=== PATIENT | male | born 1940 | race Caucasian/White ===

== ENCOUNTER 2016-07-23 12:31 | Emergency (ER) | payer MEDICARE ==
[2016-07-23 12:48] VITALS: BP 111/68
[2016-07-23] MEDS ORDERED: Sodium Chloride 0.9% 1,000 ML IV SCH (13:45)
--- NOTE | 2016-07-23 14:57 | EDM.PDOC ---
[id number] 4d DEHYDRATION, DIARRHEA Time Seen by Provider: 07/23/16 13:00 Source of Information: Reports: Patient, Provider History Limitations: Reports: No limitations - History of Present Illness INITIAL COMMENTS - FREE TEXT/NARRATIVE: 76-year-old male who has had persistent diarrhea for the past 2 weeks was over in the infusion center and became bradycardic and hypotensive, pallor, and they was concerned he may have electrolyte abnormalities and was dehydrated so some labs were drawn and he was sent to the emergency room. By the time he arrived to the emergency room he was feeling better, his blood pressure was 111/65 his pulse was normal. We received the labs drawn over the infusion center and they were actually normal and improved over his previous levels. He said he had a few episodes of a small amount of diarrhea this morning but overall today it's been very little. He's had no fevers or chills, shortness of breath or chest pain. Onset: sudden Severity: mild - Related Data Allergies Allergy/AdvReac Type Severity Reaction Status Date / Time No Known Allergies Allergy Verified 02/04/16 12:25 Home Meds: Home Meds Levothyroxine 225 mcg PO DAILY 01/22/13 [History] glipiZIDE [Glipizide] 5 mg PO BID 01/22/13 [History] Prochlorperazine [Compazine] 10 mg PO TID PRN 08/25/13 [History] metFORMIN [Glucophage] 850 mg PO TID 08/25/13 [History] oxyCODONE ER [OxyCONTIN] 20 mg PO Q12HR 08/25/13 [History] Furosemide 40 mg PO DAILY 12/18/14 [History] Lidocaine 2% [Xylocaine 2% Jelly] 1 applic TOP ASDIRECTED PRN 12/18/14 [History] Potassium Chloride [Klor-Con M20] 20 meq PO BIDMEALS 12/18/14 [History] oxyCODONE HCl [Roxicodone] 5 - 10 mg PO Q4H PRN 12/18/14 [History] Dexamethasone 8 mg PO ASDIRECTED 02/04/16 [History] Gabapentin [Neurontin] 300 mg PO TID 02/04/16 [History] Metoprolol Succinate [Toprol XL] 250 mg PO DAILY 03/20/16 [History] Allopurinol [Zyloprim] 100 mg PO DAILY 03/24/16 [History] Past Medical History HEENT History: Reports: Cataract, Hard of hearing, Impaired vision Other HEENT History: blind left eye Cardiovascular History: Reports: Arrhythmia, Hypertension, Other (see below) Other Cardiovascular History: A flutter Respiratory History: Reports: Other (see below) Other Respiratory History: lesions in lungs, on PO chemotherapy Gastrointestinal History: Reports: Other (see below) Other Gastrointestinal History: colon cancer Genitourinary History: Reports: Prostate disorder, Renal disease Other Genitourinary History: Indwelling casillas for approx 2 year. stage 3 CKD Musculoskeletal History: Reports: Arthritis, Other (see below) Other Musculoskeletal History: generalized weakness Neurological History: Reports: Vertigo Endocrine/Metabolic History: Reports: Diabetes, type II, Hypothyroidism Other Endocrine/Metabolic History: hypothyroidism Hematologic History: Reports: Blood transfusion(s) Immunologic History: Reports: Immunosuppression Oncologic (Cancer) History: Reports: Bone, Colon, Metastatic, Prostate, Other ( see below) Other Oncologic History: radiation for prostate ca, currently on PO meds for lung lesion Other Dermatologic History: rash on left shoulder-has had for approx 2 days - Infectious Disease History Infectious Disease History: Reports: Chicken pox, Mumps - Past Surgical History HEENT Surgical History: Reports: Oral surgery Other HEENT Surgeries/Procedures: All top teeth removed GI Surgical History: Reports: Cholecystectomy, Colonoscopy, Other (see below) Other GI Surgeries/Procedures: bowel resection Oncologic Surgical History: Reports: Other (see below) Other Oncologic Surgeries/Procedures: colon resection Social & Family History - Family History Family Medical History: Noncontributory - Tobacco Use Smoking Status *Q: Never Smoker Second Hand Smoke Exposure: No - Caffeine Use Caffeine Use: Reports: Coffee - Alcohol Use Days Per Week of Alcohol Use: 0 - Recreational Drug Use Recreational Drug Use: No ED ROS GENERAL - Review of Systems Review Of Systems: See Below Constitutional: Reports: malaise, weakness. Denies: fever, chills Respiratory: Denies: Shortness of Breath Cardiovascular: Denies: Chest pain GI/Abdominal: Reports: Diarrhea Skin: Reports: pallor Neurological: Denies: Headache ED EXAM, GENERAL - Physical Exam Exam: See Below Exam Limited By: No limitations General Appearance: alert, no apparent distress Respiratory/Chest: no respiratory distress, lungs clear Cardiovascular: regular rate, rhythm GI/Abdominal: non tender Course - Vital Signs Last Recorded V/S: Last Vital Signs Temp 97.7 F 07/23/16 12:48 Pulse 81 07/23/16 12:48 Resp 16 07/23/16 12:48 BP 111/68 07/23/16 12:48 Pulse Ox 92 L 07/23/16 12:48 - Orders/Labs/Meds Meds: Medications Discontinued Medications Generic Name Dose Route Start Last Admin Trade Name Saqib PRN Reason Stop Dose Admin Heparin Sodium (Porcine) Confirm 07/23/16 15:04 Heparin Lock Flush 100 Units/Ml Syringe Administered 07/23/16 15:05 Dose 500 units .ROUTE .STK-MED ONE Heparin Sodium (Porcine) 500 units 07/23/16 15:26 07/23/16 15:27 Heparin Lock Flush 100 Units/Ml Syringe FLUSH 07/23/16 15:27 500 units ASDIRECTED ONE Administration Sodium Chloride 1,000 mls @ 1,000 mls/hr 07/23/16 13:45 07/23/16 13:59 Normal Saline IV 1,000 mls/hr ASDIRECTED LUZ MARINA Administration - Re-Assessments/Exams Free Text/Narrative Re-Assessment/Exam: 07/24/16 07:11 Patient was hydrated with 2 L of normal saline. He was in the emergency room for almost 2 hours, we were going to collect a diarrheal sample for studies if available but he had no bowel movement. He was able to stand and ambulate with just a small amount of lightheaded sensation but was able to be discharged Departure - Departure Time of Disposition: 15:50 Disposition: Home, Self-Care 01 Condition: fair Clinical Impression: Dehydration, Vasovagal symptom Diarrhea Qualifiers: Diarrhea type: functional diarrhea Qualified Code(s): K59.1 - Functional diarrhea Instructions: Diarrhea, Adult, Dehydration, Adult, [id number] Referrals: Alonso Dejesus MD [Primary Care Provider] - Forms: ED Department Discharge Care Plan Goals: Continue your current medications and increase activity as tolerated. Return anytime if worsening or concerns.
== END 2016-07-23 15:49 | disposition home or self-care (01) ==
LOC: JP.ED 12:31
DX: E86.0 Dehydration (principal); K59.1 Functional diarrhea; R55 Syncope and collapse; I12.9 Hypertensive chronic kidney disease with stage 1 through stage 4 chronic kidney disease, or unspecified chronic kidney disease; N18.3 Chronic kidney disease, stage 3 (moderate); M19.90 Unspecified osteoarthritis, unspecified site; E11.9 Type 2 diabetes mellitus without complications; E03.9 Hypothyroidism, unspecified; Z79.899 Other long term (current) drug therapy; Z98.890 Other specified postprocedural states; Z90.49 Acquired absence of other specified parts of digestive tract; Z79.84 Long term (current) use of oral hypoglycemic drugs
CPT/HCPCS: 96360; 99284; J1642; J7040

== ENCOUNTER 2016-07-27 14:49 | Inpatient (IN) | payer MEDICARE ==
[2016-07-27] MEDS ORDERED: 50% Dextrose in Water 50 ML Syringe IVPUSH ONE (16:37)
--- NOTE | 2016-07-27 16:59 | EDM.PDOC ---
ED HPI GENERAL MEDICAL PROBLEM - General Chief Complaint: General Stated Complaint: SLURRING SPEECH Time Seen by Provider: 07/27/16 16:58 Source of Information: Reports: Patient History Limitations: Reports: No limitations - History of Present Illness INITIAL COMMENTS - FREE TEXT/NARRATIVE: pt arrived with slurred speech and very weak. He had gone to [employer] to buy dog food and he got so weak he had to be helped to the car. He sat there for a long time and a friend was called to come and help him. He had labs drawn here and his bs was found to be 37. he is on a very large dose of metformin. Onset: today, sudden, other ( He was at the store shopping. ) Duration: Hour(s): Associated Symptoms: Reports: weakness Denies Pain Score (Numeric/FACES): 0 - Related Data Allergies Allergy/AdvReac Type Severity Reaction Status Date / Time No Known Allergies Allergy Verified 07/27/16 15:13 Home Meds: Home Meds Levothyroxine 225 mcg PO DAILY 01/22/13 [History] glipiZIDE [Glipizide] 5 mg PO BID 01/22/13 [History] Prochlorperazine [Compazine] 10 mg PO TID PRN 08/25/13 [History] metFORMIN [Glucophage] 850 mg PO TID 08/25/13 [History] oxyCODONE ER [OxyCONTIN] 20 mg PO Q12HR 08/25/13 [History] Furosemide 40 mg PO DAILY 12/18/14 [History] Lidocaine 2% [Xylocaine 2% Jelly] 1 applic TOP ASDIRECTED PRN 12/18/14 [History] Potassium Chloride [Klor-Con M20] 20 meq PO BIDMEALS 12/18/14 [History] oxyCODONE HCl [Roxicodone] 5 - 10 mg PO Q4H PRN 12/18/14 [History] Dexamethasone 8 mg PO ASDIRECTED 02/04/16 [History] Gabapentin [Neurontin] 300 mg PO TID 02/04/16 [History] Metoprolol Succinate [Toprol XL] 250 mg PO DAILY 03/20/16 [History] Allopurinol [Zyloprim] 100 mg PO DAILY 03/24/16 [History] Past Medical History HEENT History: Reports: Cataract, Hard of hearing, Impaired vision Other HEENT History: blind left eye Cardiovascular History: Reports: Arrhythmia, Hypertension, Other (see below) Other Cardiovascular History: A flutter Respiratory History: Reports: Other (see below) Other Respiratory History: lesions in lungs, on PO chemotherapy Gastrointestinal History: Reports: Other (see below) Other Gastrointestinal History: colon cancer Genitourinary History: Reports: Prostate disorder, Renal disease Other Genitourinary History: Indwelling casillas for approx 2 year. stage 3 CKD Musculoskeletal History: Reports: Arthritis, Other (see below) Other Musculoskeletal History: generalized weakness Neurological History: Reports: Vertigo Endocrine/Metabolic History: Reports: Diabetes, type II, Hypothyroidism Other Endocrine/Metabolic History: hypothyroidism Hematologic History: Reports: Blood transfusion(s) Immunologic History: Reports: Immunosuppression Oncologic (Cancer) History: Reports: Bone, Colon, Metastatic, Prostate, Other ( see below) Other Oncologic History: radiation for prostate ca, currently on PO meds for lung lesion Other Dermatologic History: rash on left shoulder-has had for approx 2 days - Infectious Disease History Infectious Disease History: Reports: Chicken pox, Mumps - Past Surgical History HEENT Surgical History: Reports: Oral surgery Other HEENT Surgeries/Procedures: All top teeth removed GI Surgical History: Reports: Cholecystectomy, Colonoscopy, Other (see below) Other GI Surgeries/Procedures: bowel resection Oncologic Surgical History: Reports: Other (see below) Other Oncologic Surgeries/Procedures: colon resection Social & Family History - Family History Family Medical History: Noncontributory - Tobacco Use Smoking Status *Q: Never Smoker Second Hand Smoke Exposure: No - Caffeine Use Caffeine Use: Reports: Coffee - Alcohol Use Days Per Week of Alcohol Use: 0 - Recreational Drug Use Recreational Drug Use: No ED ROS GENERAL - Review of Systems Review Of Systems: See Below Constitutional: Reports: no symptoms HEENT: Reports: No symptoms Respiratory: Reports: No Symptoms Cardiovascular: Reports: No symptoms Endocrine: Reports: no symptoms GI/Abdominal: Reports: No symptoms : Reports: no symptoms Musculoskeletal: Reports: no symptoms Skin: Reports: no symptoms ED EXAM, GENERAL - Physical Exam Exam: See Below Free Text/Narrative:: pt arrived with weakness and slurred speech. he was found to have a bs of 37. He had an amp of d50 and he woke up and seemed back to normal. He has a history of prostate ca and is on chemo 3 weeks on and 1 wk off. Exam Limited By: No limitations General Appearance: alert, no apparent distress Ears: normal TMs Nose: normal inspection Throat/Mouth: Normal inspection Head: atraumatic Neck: normal inspection Respiratory/Chest: no respiratory distress Cardiovascular: regular rate, rhythm GI/Abdominal: soft, non tender (Male) Exam: Deferred Rectal (Males) Exam: Deferred Back Exam: normal inspection Extremities: normal inspection Neurological: alert, oriented Psychiatric: normal affect Course - Vital Signs Last Recorded V/S: Last Vital Signs Temp 34.8 C L 07/27/16 16:41 Pulse 62 07/27/16 16:41 Resp 16 07/27/16 16:41 BP 135/90 07/27/16 16:41 Pulse Ox 95 07/27/16 16:41 - Orders/Labs/Meds Orders: Active Orders 24 hr Category Date Time Status CULTURE URINE [RM] Stat Lab 07/27/16 17:42 Received GLUCOSE POC LAB TO COLLECT [POC] Stat Lab 07/27/16 17:51 Ordered Dextrose 5%-0.45% NaCl [Dextrose 5%-1/2 NS] 1,000 ml Med 07/27/16 17:00 Active IV ASDIRECTED Medication Orders Dextrose/Sodium Chloride (Dextrose 5%-1/2 Ns) 1,000 mls @ 200 mls/hr IV ASDIRECTED LUZ MARINA Last Admin: 07/27/16 17:25 Dose: 200 mls/hr Labs: Laboratory Tests 07/27/16 07/27/16 07/27/16 Range/Units 16:09 16:09 16:52 WBC 5.2 (4.5-11.0) K/uL RBC 3.71 L (4.30-5.90) M/uL Hgb 11.0 L (12.0-15.0) g/dL Hct 33.4 L (40.0-54.0) % MCV 90 (80-98) fL MCH 30 (27-31) pg MCHC 33 (32-36) % Plt Count 213 (150-400) K/uL Neut % (Auto) 85 H (36-66) % Lymph % (Auto) 3 L (24-44) % [place] % (Auto) 11 H (2-6) % Eos % (Auto) 0 L (2-4) % Baso % (Auto) 0 (0-1) % Sodium 132 L (140-148) mmol/L Potassium 3.5 L (3.6-5.2) mmol/L Chloride 99 L (100-108) mmol/L Carbon Dioxide 22 (21-32) mmol/L Anion Gap 14.5 H (5.0-14.0) mmol/L BUN 10 D (7-18) mg/dL Creatinine 1.3 (0.8-1.3) mg/dL Est Cr Clr Drug Dosing 52.08 mL/min Estimated GFR (MDRD) 54 L (>60) Glucose 37 L* (74-106) mg/dL Calcium 8.2 L (8.5-10.1) mg/dL Total Bilirubin 0.5 D (0.2-1.0) mg/dL AST 46 H (15-37) U/L ALT 64 (12-78) U/L Alkaline Phosphatase 81 D (46-116) U/L Total Protein 6.5 (6.4-8.2) g/dL Albumin 2.7 L (3.4-5.0) g/dL Globulin 3.8 H (2.3-3.5) g/dL Albumin/Globulin Ratio 0.7 L (1.2-2.2) Urine Color Yellow Urine Appearance Slightly cloudy Urine pH 6.0 (4.5-8.0) Ur Specific [place] 1.005 L (1.008-1.030) Urine Protein Negative (NEGATIVE) mg/dL Urine Glucose (UA) Normal (NEGATIVE) mg/dL Urine Ketones Negative (NEGATIVE) mg/dL Urine Occult Blood Moderate (NEGATIVE) Urine Nitrite Positive H (NEGAITVE) Urine Bilirubin Negative (NEGATIVE) Urine Urobilinogen Normal (NORMAL) mg/dL Ur Leukocyte Esterase Large (NEGATIVE) Urine RBC 5-10 H (0-5) Urine WBC 30-40 H (0-5) Ur Epithelial Cells Few Amorphous Sediment Few Urine Bacteria Many Urine Mucus Few Meds: Medications Generic Name Dose Route Start Last Admin Trade Name Freq PRN Reason Stop Dose Admin Dextrose/Sodium Chloride 1,000 mls @ 200 mls/hr 07/27/16 17:00 07/27/16 17:25 Dextrose 5%-1/2 Ns IV 200 mls/hr ASDIRECTED LUZ MARINA Administration Discontinued Medications Generic Name Dose Route Start Last Admin Trade Name Freq PRN Reason Stop Dose Admin Dextrose/Water 50 ml 07/27/16 16:37 07/27/16 16:41 Dextrose 50% In Water IVPUSH 07/27/16 16:38 50 ml ONETIME ONE Administration Departure - Departure Time of Disposition: 17:52 Disposition: Admitted As Inpatient 67 Condition: good Clinical Impression: Hypoglycemia, UTI (urinary tract infection), Prostate CA Forms: ED Department Discharge Care Plan Goals: admit for observation through the nite. -- Amanda Chiang. - My Orders Last 24 Hours: My Active Orders 07/27/16 17:00 Dextrose 5%-0.45% NaCl [Dextrose 5%-1/2 NS] 1,000 ml IV ASDIRECTED 07/27/16 17:42 CULTURE URINE [RM] Stat 07/27/16 17:51 GLUCOSE POC LAB TO COLLECT [POC] Stat - Assessment/Plan Last 24 Hours: My Active Orders 07/27/16 17:00 Dextrose 5%-0.45% NaCl [Dextrose 5%-1/2 NS] 1,000 ml IV ASDIRECTED 07/27/16 17:42 CULTURE URINE [RM] Stat 07/27/16 17:51 GLUCOSE POC LAB TO COLLECT [POC] Stat
[2016-07-27] MEDS ORDERED: Dextrose 5%-0.45% NaCl 1,000 ML IV SCH (17:00)
[2016-07-27] MEDS ORDERED: cefTRIAXone 1 GM in Sodium Chloride 0.9% 50 ML IV SCH (18:45)
[2016-07-27] MEDS ORDERED: HYDROmorphone 1 MG/ML Syringe IVPUSH ONE (19:23)
[2016-07-27] MEDS ORDERED: Ondansetron 4 MG/2 ML SDV IVPUSH ONE (19:24)
[2016-07-27] MEDS ORDERED: Lidocaine 2% Jelly 10 ML Urojet MUCMEM ONE (20:41)
[2016-07-27] MEDS ORDERED: LORazepam 2 MG/ML MDV IV PRN (22:05)
[2016-07-27] MEDS ORDERED: Albuterol 0.083% 2.5 MG/3 ML Neb Soln NEB PRN (22:05)
[2016-07-27] MEDS ORDERED: Zolpidem 5 MG Tab PO PRN (22:05)
[2016-07-27] MEDS ORDERED: Dexamethasone 4 MG Tab PO SCH (22:05)
[2016-07-27] MEDS ORDERED: Acetaminophen 325 MG Tab PO PRN (22:05)
[2016-07-27] MEDS ORDERED: Prochlorperazine 10 MG Tab PO PRN (22:05)
[2016-07-27] MEDS ORDERED: oxyCODONE 5 MG Tab PO PRN (22:05)
[2016-07-27] MEDS ORDERED: Docusate Sodium 100 MG Cap PO PRN (22:05)
[2016-07-27] MEDS ORDERED: Pantoprazole 40 MG Vial ONE (22:57)
[2016-07-27] MEDS: Pantoprazole 40 MG Vial IVPUSH SCH (23:00)
[2016-07-27] MEDS: oxyCODONE ER 20 MG TAB.ER PO SCH (23:00)
[2016-07-27] MEDS: Potassium Chloride 20 MEQ Tab.ER PO SCH (23:00)
--- NOTE | 2016-07-27 23:02 | PCM.HP ---
H&P History of Present Illness - General Date of Service: 07/27/16 Admit Problem/Dx: Admission Diagnosis/Problem Admission Diagnosis/Problem Urinary tract infection Source of Information: Patient History Limitations: Reports: No limitations - History of Present Illness Initial Comments - Free Text/Narative: INITIAL COMMENTS: hypoglycemia, urinary tract infection, prostate cancer with chemotherapy. Mr. Manuelito rincon has felt well for the past 3 weeks. Feeling increasingly fatigue, shortness of breath. Carmen last night fell in the house, laid on the floor for 45 minutes because too weak to get up, finally crawled to bathroom, was able to get to standing position by pulling self up to bathtub, then sink , then standing. He reports his casillas cath is painful and has a stinging pain. Today he was at [id number] for dog food when he became so weak, difficulty walking and thinking, he required assistance to car. He called his friend Mr. Juno Copeland to come and help him. When Mr. Billings arrived in Emergency Room with slurred speech and very weak. He had labs drawn here and his blood glucose was found to be 37. He is taking Metformin and glyubride. He had an amp of d50 and he woke up and seemed back to normal. IV fluids D5W at 250ml/hr. He has a history of prostate ca and is on chemo 3 weeks on and 1 wk off diabetes type 2 In ER, found to have urinary tract infection, hypoglycemia and diabetes type 2, colon cancer with mets will admit for IV antibiotic, rehydration, consult to OT and PT Onset of Symptoms: Reports: gradual Duration of Symptoms: Reports: Week(s): (three), Getting worse Location: Reports: generalized Quality: Reports: Same as previous episode (bladder pain ) Severity: moderate Improves with: Reports: None Worsens with: Reports: None Context: Reports: other (fall at home with 45 minutes on floor.) Associated Symptoms: Reports: confusion, fever/chills, loss of appetite, malaise , shortness of breath, weakness Denies Pain Score (Numeric/FACES): 0 - Related Data Allergies/Adverse Reactions: Allergies Allergy/AdvReac Type Severity Reaction Status Date / Time No Known Allergies Allergy Verified 07/27/16 15:13 Home Medications: Home Meds Levothyroxine 225 mcg PO DAILY 10/26/13 [History] glipiZIDE [Glipizide] 5 mg PO BID 01/22/13 [History] Prochlorperazine [Compazine] 10 mg PO TID PRN 08/25/13 [History] metFORMIN [Glucophage] 850 mg PO TID 08/25/13 [History] oxyCODONE ER [OxyCONTIN] 20 mg PO Q12HR 08/25/13 [History] Furosemide 40 mg PO DAILY 12/18/14 [History] Lidocaine 2% [Xylocaine 2% Jelly] 1 applic TOP ASDIRECTED PRN 12/18/14 [History] Potassium Chloride [Klor-Con M20] 20 meq PO BIDMEALS 12/18/14 [History] oxyCODONE HCl [Roxicodone] 5 - 10 mg PO Q4H PRN 12/18/14 [History] Dexamethasone 8 mg PO ASDIRECTED 02/04/16 [History] Gabapentin [Neurontin] 300 mg PO TID 02/04/16 [History] Metoprolol Succinate [Toprol XL] 250 mg PO DAILY 03/20/16 [History] Allopurinol [Zyloprim] 100 mg PO DAILY 03/24/16 [History] Past Medical History HEENT History: Reports: Cataract, Hard of hearing, Impaired vision Other HEENT History: blind left eye Cardiovascular History: Reports: Arrhythmia, Hypertension, Other (see below) Other Cardiovascular History: A flutter Respiratory History: Reports: Other (see below) Other Respiratory History: lesions in lungs, on PO chemotherapy Gastrointestinal History: Reports: Other (see below) Other Gastrointestinal History: colon cancer Genitourinary History: Reports: Prostate disorder, Renal disease Other Genitourinary History: Indwelling casillas for approx 2 year. stage 3 CKD Musculoskeletal History: Reports: Arthritis, Other (see below) Other Musculoskeletal History: generalized weakness Neurological History: Reports: Vertigo Endocrine/Metabolic History: Reports: Diabetes, type II, Hypothyroidism Other Endocrine/Metabolic History: hypothyroidism Hematologic History: Reports: Blood transfusion(s) Immunologic History: Reports: Immunosuppression Oncologic (Cancer) History: Reports: Bone, Colon, Metastatic, Prostate, Other ( see below) Other Oncologic History: radiation for prostate ca, currently on PO meds for lung lesion Other Dermatologic History: rash on left shoulder-has had for approx 2 days - Infectious Disease History Infectious Disease History: Reports: Chicken pox, Mumps - Past Surgical History HEENT Surgical History: Reports: Oral surgery Other HEENT Surgeries/Procedures: All top teeth removed GI Surgical History: Reports: Cholecystectomy, Colonoscopy, Other (see below) Other GI Surgeries/Procedures: bowel resection Oncologic Surgical History: Reports: Other (see below) Other Oncologic Surgeries/Procedures: colon resection Social & Family History - Family History Family Medical History: Noncontributory - Tobacco Use Smoking Status *Q: Never Smoker Second Hand Smoke Exposure: No - Caffeine Use Caffeine Use: Reports: Coffee - Alcohol Use Days Per Week of Alcohol Use: 0 - Recreational Drug Use Recreational Drug Use: No - Living Situation & Occupation Living situation: Reports: single Occupation: disabled (retired construction rep, not , no children, lives alone, has a brother who visits and stays at his home, but is not helpful to home life.) H&P Review of Systems - Review of Systems: Review Of Systems: See Below General: Reports: chills, weakness, fatigue, decreased appetite, other (chemo therapy for prostate cancer) HEENT: Reports: other (left eye 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 due for change in one week.) Musculoskeletal: Reports: other (generalized pain, on chronic pain management. ) Skin: Reports: bruising (from fall yesterday.), wound (skin tear to right elbow and right anterior lower leg.) Psychiatric: Reports: no symptoms Neurological: Reports: Difficulty Walking, Weakness Hematologic/Lymphatic: Reports: easy bleeding, easy bruising Immunologic: Reports: other (chemo therapy for prostate cancer) Exam - Exam Exam: See Below - Vital Signs Vital Signs: Last Vital Signs Temp 35.7 C 07/27/16 18:58 Pulse 87 07/27/16 21:21 Resp 16 07/27/16 21:21 BP 141/99 H 07/27/16 21:21 Pulse Ox 94 L 07/27/16 21:21 Weight: 95.8 kg - Exam General: alert, oriented, cooperative, other (appears frail and chronically illness.) HEENT: Conjunctiva clear (eyelid with bright red fleshy tissue noted to rim of eyelids.), Abnormal pupils (left eye blindness), Other (left eye with blindness. ) Neck: supple, trachea midline Lungs: Normal respiratory effort Cardiovascular: regular rate, regular rhythm, normal S1, normal S2 Abdomen: normal bowel sounds, soft, other (old well healed surgical scars noted. ) (Male) Exam: Deferred, Other (casillas cath is noted.) Rectal (Males) Exam: Deferred Back Exam: normal inspection, full range of motion Extremities: normal inspection, other (skin tear noted to rt anterior ankle, skin very dry and flakes of dry skin.) Skin: warm, dry, other (multi skin tears to bilateral arms, lower legs.) Neurological: reflexes equal bilateral, normal speech, normal tone Neuro Extensive - Mental Status: alert, oriented x3, normal mood/affect, normal cognition, memory intact Psychiatric: alert, normal affect, normal mood - Patient Data Result Diagrams: 07/27/16 16:09 07/27/16 16:09 *Q Meaningful Use (ADM) - VTE *Q VTE Criteria *Q: - Stroke *Q Stroke Criteria *Q: - AMI *Q AMI Criteria *Q: - Problem List (1) Diabetes mellitus type 2 with complications SNOMED Code(s): 51524406, 43729900811117 ICD Code: E11.8 - TYPE 2 DIABETES MELLITUS WITH UNSPECIFIED COMPLICATIONS Status: Acute Priority: High Current Visit: Yes Qualifiers: Diabetes mellitus half-way insulin use: without half-way use Qualified Code(s): E11.8 - Type 2 diabetes mellitus with unspecified complications (2) Hypoglycemia SNOMED Code(s): 973131725 ICD Code: E16.2 - HYPOGLYCEMIA, UNSPECIFIED Status: Acute Priority: High Current Visit: Yes (3) Prostate CA SNOMED Code(s): 243629899 ICD Code: C61 - MALIGNANT NEOPLASM OF PROSTATE Status: Acute Priority: High Current Visit: Yes (4) UTI (urinary tract infection) SNOMED Code(s): 17463326 ICD Code: N39.0 - URINARY TRACT INFECTION, SITE NOT SPECIFIED Status: Acute Priority: High Current Visit: Yes Qualifiers: Urinary tract infection type: catheter-associated UTI Indwelling urinary catheter type: indwelling urethral catheter Encounter type: initial encounter Qualified Code(s): T83.511A - Infection and inflammatory reaction due to indwelling urethral catheter, initial encounter; N39.0 - Urinary tract infection , site not specified Problem List Initiated/Reviewed/Updated: Yes Orders Last 24hrs: Active Orders 24 hr Category Date Time Status Patient Status [ADT] Routine ADT 07/27/16 22:05 Active Cardiac Monitoring [RC] .As Directed Care 07/27/16 22:05 Active Diabetes Education [RC] Click To Edit Care 07/27/16 22:05 Active Intake and Output [RC] QSHIFT Care 07/27/16 22:05 Active Notify Provider Vital Signs [RC] ASDIRECTED Care 07/27/16 22:05 Active Oxygen Therapy [RC] PRN Care 07/27/16 22:05 Active RT Aerosol Therapy [RC] ASDIRECTED Care 07/27/16 22:05 Active Up With Assistance [RC] ASDIRECTED Care 07/27/16 22:05 Active VTE/DVT Education [RC] Per Unit Routine Care 07/27/16 22:05 Active Vital Signs [RC] Q4H Care 07/27/16 22:05 Active Consult to Spiritual Care [CONS] Routine Cons 07/27/16 22:05 Active OT Evaluation and Treatment [CONS] Routine Cons 07/27/16 22:05 Active PT Evaluation and Treatment [CONS] Routine Cons 07/27/16 22:05 Active Consistent Carbohydrate Diet [DIET] Diet 07/27/16 Breakfast Active BASIC METABOLIC PANEL,BMP [CHEM] AM Lab 07/28/16 05:11 Ordered CBC WITH AUTO DIFF [HEME] AM Lab 07/28/16 05:11 Ordered GLUCOSE POC LAB TO COLLECT [POC] QIDACANDBED Lab 07/28/16 07:30 Ordered Acetaminophen [Tylenol] Med 07/27/16 22:05 Active 650 mg PO Q4H PRN Albuterol [Proventil Neb Soln] Med 07/27/16 22:05 Active 2.5 mg NEB Q4H PRN Allopurinol [Zyloprim] Med 07/28/16 09:00 Active 100 mg PO DAILY Dexamethasone Med 07/27/16 22:05 Ordered 8 mg PO ASDIRECTED Docusate Sodium [Colace] Med 07/27/16 22:05 Active 100 mg PO BID PRN Furosemide [Lasix] Med 07/28/16 09:00 Active 40 mg PO DAILY Gabapentin [Neurontin] Med 07/28/16 09:00 Active 300 mg PO TID LORazepam [Ativan] Med 07/27/16 22:05 Active 1 mg IV Q6H PRN Levothyroxine Med 07/28/16 09:00 Active 25 mcg PO DAILY Levothyroxine [Synthroid] Med 07/28/16 09:00 Active 200 mcg PO DAILY Metoprolol Succinate [Toprol XL] Med 07/28/16 09:00 Active 250 mg PO DAILY Pantoprazole [ProTONIX IV] Med 07/27/16 22:05 Active 40 mg IVPUSH Q12H Potassium Chloride [Klor-Con M20] Med 07/27/16 22:05 Active 20 meq PO BIDMEALS Prochlorperazine [Compazine] Med 07/27/16 22:05 Active 10 mg PO TID PRN Sodium Chloride 0.9% [Normal Saline] 1,000 ml Med 07/27/16 22:05 Active IV ASDIRECTED Zolpidem [Ambien] Med 07/27/16 22:05 Active 5 mg PO BEDTIME PRN cefTRIAXone [Rocephin] 1 gm Med 07/28/16 20:00 Active Sodium Chloride 0.9% [Normal Saline] 50 ml IV Q24H oxyCODONE Med 07/27/16 22:05 Active See Dose Instructions PO Q4H PRN oxyCODONE ER [OxyCONTIN] Med 07/27/16 22:00 Active 20 mg PO Q12H Sequential Compression Device [OM.PC] Per Unit Routine Oth 07/27/16 22:05 Ordered Resuscitation Status Routine Resus Stat 07/27/16 21:11 Ordered Medication Orders Acetaminophen (Tylenol) 650 mg PO Q4H PRN PRN Reason: Pain (Mild 1-3)/fever Albuterol (Proventil Neb Soln) 2.5 mg NEB Q4H PRN PRN Reason: Shortness Of Breath/wheezing Allopurinol (Zyloprim) 100 mg PO DAILY [facility] Dexamethasone (Dexamethasone) 8 mg PO ASDIRECTED [facility] Docusate Sodium (Colace) 100 mg PO BID PRN PRN Reason: Constipation Furosemide (Lasix) 40 mg PO DAILY [facility] Gabapentin (Neurontin) 300 mg PO TID [facility] Dextrose/Sodium Chloride (Dextrose 5%-1/2 Ns) 1,000 mls @ 200 mls/hr IV ASDIRECTED [facility] Last Admin: 07/27/16 17:25 Dose: 200 mls/hr Sodium Chloride (Normal Saline) 1,000 mls @ 125 mls/hr IV ASDIRECTED [facility] Ceftriaxone Sodium 1 gm/ (Sodium Chloride) 50 mls @ 100 mls/hr IV Q24H [facility] Levothyroxine Sodium (Synthroid) 200 mcg PO DAILY [facility] Levothyroxine Sodium (Levothyroxine) 25 mcg PO DAILY [facility] Lorazepam (Ativan) 1 mg IV Q6H PRN PRN Reason: Nausea/Vomiting Metoprolol Succinate (Toprol Xl) 250 mg PO DAILY [facility] Oxycodone HCl (Oxycontin) 20 mg PO Q12H [facility] Last Admin: 07/27/16 23:00 Dose: 20 mg Oxycodone HCl (Oxycodone) 0 mg PO Q4H PRN PRN Reason: Pain Pantoprazole Sodium (Protonix Iv) 40 mg IVPUSH Q12H [facility] Last Admin: 07/27/16 23:00 Dose: 40 mg Potassium Chloride (Klor-Con M20) 20 meq PO BIDMEALS [facility] Last Admin: 07/27/16 23:00 Dose: 20 meq Prochlorperazine Maleate (Compazine) 10 mg PO TID PRN PRN Reason: Nausea/Vomiting Zolpidem Tartrate (Ambien) 5 mg PO BEDTIME PRN PRN Reason: Sleep Assessment/Plan Comment:: ASSESSMENT / PLAN INITIAL COMMENTS: hypoglycemia, urinary tract infection, prostate cancer with chemotherapy. Mr. Billings reports has felt well for the past 3 weeks. Feeling increasingly fatigue, shortness of breath. Reports last night fell in the house, laid on the floor for 45 minutes because too weak to get up, finally crawled to bathroom, was able to get to standing position by pulling self up to bathtub, then sink , then standing. He reports his casillas cath is painful and has a stinging pain. 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 He called his friend Mr. Juno Copeland to come and help him. When Mr. Billings arrived in Emergency Room with slurred speech and very weak. He had labs drawn here and his blood glucose was found to be 37. He is taking Metformin and glyubride. He had an amp of d50 and he woke up and seemed back to normal. IV fluids D5W at 250ml/hr. He has a history of prostate cancer and is on chemo 3 weeks on and 1 wk off diabetes type 2 In ER, found to have urinary tract infection, hypoglycemia and diabetes type 2, colon cancer with mets Urinary Tract infection -Rocephin 1 gram in ER, next dose at 0900 -casillas cath changed -IV fluids NS at 125ml/hr Diabetes Type 2, complication hypoglycemia -monitor blood glucose 4 times a day -hold metformin and glyburide -POC blood glucose -Advise to notify nurses of any chest pain or other symptoms Maintenance issues -Orders home meds: hold metformin and glyubride -Nutrition: consistent carb diet -Casillas catheter ;' changed in ER -DVT: scd CODE STATUS: DNI Admission status: Admit to ICU Admission justification. This patient will be admitted for inpatient services and is medically appropriate meeting medical necessity for inpatient admission as outlined in my documentation. I reasonably expect the patient will require inpatient services that span. Time over 2 midnights. I reasonably expect this patient to be discharged or transferred within 96 hours after admission to the critical [facility]. Disposition; home or assisted living home Primary care provider: Dr. Dejesus Hospitalist; Dr. Joseph
[2016-07-27] MEDS: Sodium Chloride 0.9% 1,000 ML IV SCH (23:03)
[2016-07-28] MEDS: Sodium Chloride 0.9% 1,000 ML IV SCH (07:25)
[2016-07-28] MEDS: Potassium Chloride 20 MEQ Tab.ER PO SCH ×2 (08:29→17:55)
[2016-07-28] MEDS: Allopurinol 100 MG Tab PO SCH (08:29)
[2016-07-28] MEDS: Furosemide 40 MG Tab PO SCH (08:29)
[2016-07-28] MEDS: Gabapentin 300 MG Cap PO SCH ×3 (08:29→20:47)
[2016-07-28] MEDS: Levothyroxine 25 MCG Tab PO SCH (08:30)
[2016-07-28] MEDS: Levothyroxine 100 MCG Tab PO SCH (08:30)
[2016-07-28] MEDS: Metoprolol Succinate 50 MG Tab.ER PO SCH (08:32)
[2016-07-28] MEDS ORDERED: Levothyroxine 25 MCG Tab PO SCH (09:00)
[2016-07-28] MEDS ORDERED: Levothyroxine 100 MCG Tab PO SCH (09:00)
[2016-07-28] MEDS: oxyCODONE ER 20 MG TAB.ER PO SCH ×2 (09:31→21:40)
[2016-07-28] MEDS: Pantoprazole 40 MG Vial IVPUSH SCH ×2 (09:31→21:32)
--- NOTE | 2016-07-28 14:15 | PCM.PN ---
- General Info Date of Service: 07/28/16 Functional Status: Reports: pain controlled, tolerating diet, ambulating, urinating - Review of Systems General: Reports: Fever, Weakness. Denies: Chills Pulmonary: Reports: no symptoms Cardiovascular: Reports: No Symptoms Gastrointestinal: Reports: No symptoms Genitourinary: Reports: dysuria, frequency, burning. Denies: incontinence, hematuria, retention Systems Review Comment:: This patient is a 76-year-old gentleman who is admitted through the emergency department last night with weakness, confusion, and dehydration secondary to a urinary tract infection. After hydration and initial dose of antibiotics he is feeling somewhat improved, appetite seems to be better and he is no longer confused. - Patient Data Vitals - most recent: Last Vital Signs Temp 100 F 07/28/16 11:00 Pulse 79 07/28/16 11:00 Resp 18 07/28/16 11:00 BP 112/77 07/28/16 11:00 Pulse Ox 91 L 07/28/16 11:00 Weight - most recent: 211 lb 3.245 oz I&O - last 24 hours: Intake & Output 07/27/16 07/28/16 07/28/16 22:59 06:59 14:59 Intake Total 1178 360 Output Total 395 300 Balance -395 878 360 Lab Results last 24 hrs: Laboratory Results - last 24 hr 07/28/16 07/28/16 07/28/16 Range/Units 01:09 05:35 05:35 WBC 4.5 (4.5-11.0) K/uL RBC 3.27 L (4.30-5.90) M/uL Hgb 9.8 L (12.0-15.0) g/dL Hct 29.5 L (40.0-54.0) % MCV 90 (80-98) fL MCH 30 (27-31) pg MCHC 33 (32-36) % Plt Count 211 (150-400) K/uL Neut % (Auto) 73 H (36-66) % Lymph % (Auto) 10 L (24-44) % [place] % (Auto) 16 H (2-6) % Eos % (Auto) 1 L (2-4) % Baso % (Auto) 0 (0-1) % Sodium 132 L (140-148) mmol/L Potassium 4.3 (3.6-5.2) mmol/L Chloride 102 (100-108) mmol/L Carbon Dioxide 21 (21-32) mmol/L Anion Gap 13.3 (5.0-14.0) mmol/L BUN 10 (7-18) mg/dL Creatinine 1.3 (0.8-1.3) mg/dL Est Cr Clr Drug Dosing 52.29 mL/min Estimated GFR (MDRD) 54 L (>60) Glucose 98 (74-106) mg/dL Lactic Acid 1.8 (0.4-2.0) mmol/L Calcium 7.4 L (8.5-10.1) mg/dL Med Orders - Current: Current Medications Acetaminophen (Tylenol) 650 mg PO Q4H PRN PRN Reason: Pain (Mild 1-3)/fever Albuterol (Proventil Neb Soln) 2.5 mg NEB Q4H PRN PRN Reason: Shortness Of Breath/wheezing Allopurinol (Zyloprim) 100 mg PO DAILY [facility] Last Admin: 07/28/16 08:29 Dose: 100 mg Docusate Sodium (Colace) 100 mg PO BID PRN PRN Reason: Constipation Furosemide (Lasix) 40 mg PO DAILY [facility] Last Admin: 07/28/16 08:29 Dose: 40 mg Gabapentin (Neurontin) 300 mg PO TID [facility] Last Admin: 07/28/16 08:29 Dose: 300 mg Ceftriaxone Sodium 1 gm/ (Sodium Chloride) 50 mls @ 100 mls/hr IV Q24H [facility] Levothyroxine Sodium (Levothyroxine) 25 mcg PO ACBREAKFAST [facility] Last Admin: 07/28/16 08:30 Dose: 25 mcg Levothyroxine Sodium (Synthroid) 200 mcg PO ACBREAKFAST [facility] Last Admin: 07/28/16 08:30 Dose: 200 mcg Lorazepam (Ativan) 1 mg IV Q6H PRN PRN Reason: Nausea/Vomiting Metoprolol Succinate (Toprol Xl) 250 mg PO DAILY [facility] Last Admin: 07/28/16 08:32 Dose: 250 mg Oxycodone HCl (Oxycontin) 20 mg PO Q12H [facility] Last Admin: 07/28/16 09:31 Dose: 20 mg Oxycodone HCl (Oxycodone) 0 mg PO Q4H PRN PRN Reason: Pain Pantoprazole Sodium (Protonix Iv) 40 mg IVPUSH Q12H [facility] Last Admin: 07/28/16 09:31 Dose: 40 mg Potassium Chloride (Klor-Con M20) 20 meq PO BIDMEALS [facility] Last Admin: 07/28/16 08:29 Dose: 20 meq Prochlorperazine Maleate (Compazine) 10 mg PO TID PRN PRN Reason: Nausea/Vomiting Zolpidem Tartrate (Ambien) 5 mg PO BEDTIME PRN PRN Reason: Sleep Discontinued Medications Dextrose/Water (Dextrose 50% In Water) 50 ml IVPUSH ONETIME ONE Stop: 07/27/16 16:38 Last Admin: 07/27/16 16:41 Dose: 50 ml Hydromorphone HCl (Dilaudid) 1 mg IVPUSH ONETIME ONE Stop: 07/27/16 19:24 Last Admin: 07/27/16 19:35 Dose: 1 mg Dextrose/Sodium Chloride (Dextrose 5%-1/2 Ns) 1,000 mls @ 200 mls/hr IV ASDIRECTED [facility] Last Admin: 07/27/16 17:25 Dose: 200 mls/hr Ceftriaxone Sodium 1 gm/ (Sodium Chloride) 50 mls @ 100 mls/hr IV Q24H [facility] Last Admin: 07/27/16 19:40 Dose: 100 mls/hr Sodium Chloride (Normal Saline) 1,000 mls @ 125 mls/hr IV ASDIRECTED [facility] Last Admin: 07/28/16 07:25 Dose: 125 mls/hr Lidocaine HCl (Xylocaine 2% Jelly) 10 ml MUCMEM ONETIME ONE Stop: 07/27/16 20:42 Last Admin: 07/27/16 21:50 Dose: 10 ml Ondansetron HCl (Zofran) 4 mg IVPUSH ONETIME ONE Stop: 07/27/16 19:25 Last Admin: 07/27/16 19:35 Dose: 4 mg Pantoprazole Sodium (Protonix Iv) Confirm Administered Dose 40 mg .ROUTE .STK -MED ONE Stop: 07/27/16 22:58 Last Admin: 07/27/16 22:59 Dose: Not Given - Exam Quality Assessment: DVT prophylaxis General: alert, oriented, cooperative Lungs: Clear to auscultation, Normal respiratory effort, Decreased breath sounds Cardiovascular: Regular Rate, Regular Rhythm, No Murmurs Abdomen: bowel sounds present, soft, no tenderness, no distension Extremities: no edema Skin: warm, dry, intact - Problem List Review Problem List Initiated/Reviewed/Updated: Yes - My Orders Last 24 Hours: My Active Orders 07/28/16 14:11 Convert IV to Saline Lock [OM.PC] Routine - Plan Plan:: ASSESSMENT / PLAN Urinary Tract infection-history of chronic indwelling catheter, secondary to prostate cancer -Rocephin 1 gram in ER, next dose at 0900 -casillas cath changed -Saline lock IV DELIRIUM-secondary to urinary tract infection, now resolved Diabetes Type 2, complication hypoglycemia -monitor blood glucose 4 times a day -hold metformin and glyburide -POC blood glucose -Sliding scale [employer] Maintenance issues -Orders home meds: hold metformin and glyubride -Nutrition: consistent carb diet -Casillas catheter ;' changed in ER -DVT: scd CODE STATUS: DNR Admission status: Admit to ICU Admission justification. This patient will be admitted for inpatient services and is medically appropriate meeting medical necessity for inpatient admission as outlined in my documentation. I reasonably expect the patient will require inpatient services that span. Time over 2 midnights. I reasonably expect this patient to be discharged or transferred within 96 hours after admission to the critical access hospital. Disposition; home or assisted living home Primary care provider: Dr. Dejesus Hospitalist; Dominique
[2016-07-28] MEDS ORDERED: Glucose Gel 15 GM in 37.5 GM Tube PO PRN (14:16)
[2016-07-28] MEDS: cefTRIAXone 1 GM in Sodium Chloride 0.9% 50 ML IV SCH (20:55)
[2016-07-28] MEDS: Insulin Aspart 100 Units/ML 3 ML Pen SUBCUT SCH (21:50)
[2016-07-29] MEDS: Levothyroxine 25 MCG Tab PO SCH (07:26)
[2016-07-29] MEDS: Levothyroxine 100 MCG Tab PO SCH (07:26)
[2016-07-29] MEDS: Potassium Chloride 20 MEQ Tab.ER PO SCH ×2 (08:38→17:11)
[2016-07-29] MEDS: Gabapentin 300 MG Cap PO SCH ×3 (08:39→21:05)
[2016-07-29] MEDS: Metoprolol Succinate 50 MG Tab.ER PO SCH (08:39)
[2016-07-29] MEDS: Furosemide 40 MG Tab PO SCH (08:40)
[2016-07-29] MEDS: Allopurinol 100 MG Tab PO SCH (08:40)
[2016-07-29] MEDS: oxyCODONE ER 20 MG TAB.ER PO SCH ×2 (09:56→22:04)
[2016-07-29] MEDS: Pantoprazole 40 MG Tab.CR PO SCH ×2 (11:14→21:06)
[2016-07-29] MEDS: Insulin Aspart 100 Units/ML 3 ML Pen SUBCUT SCH ×3 (13:03→21:00)
[2016-07-29] MEDS: Lactulose Soln 10 GM/15 ML 15 ML UD Cup PO SCH ×2 (18:36→21:03)
--- NOTE | 2016-07-29 19:04 | PCM.PN ---
- General Info Date of Service: 07/29/16 Functional Status: Reports: tolerating diet, urinating - Review of Systems General: Reports: Fever, Weakness. Denies: Chills Pulmonary: Reports: no symptoms Cardiovascular: Reports: No Symptoms Gastrointestinal: Reports: No symptoms Systems Review Comment:: This patient has shown further improvement over the past 24 hours, he is had only low-grade temperature elevations and has been hemodynamically stable. Appetite seems to be improving, he's had no significant nausea or vomiting. - Patient Data Vitals - most recent: Last Vital Signs Temp 100.0 F 07/29/16 15:42 Pulse 71 07/29/16 10:45 Resp 16 07/29/16 15:42 BP 128/80 07/29/16 15:42 Pulse Ox 92 L 07/29/16 15:42 Weight - most recent: 211 lb 3.245 oz I&O - last 24 hours: Intake & Output 07/29/16 07/29/16 07/29/16 06:59 14:59 22:59 Intake Total 600 600 480 Output Total 650 2275 Balance -50 600 -1795 Med Orders - Current: Current Medications Acetaminophen (Tylenol) 650 mg PO Q4H PRN PRN Reason: Pain (Mild 1-3)/fever Albuterol (Proventil Neb Soln) 2.5 mg NEB Q4H PRN PRN Reason: Shortness Of Breath/wheezing Allopurinol (Zyloprim) 100 mg PO DAILY [facility] Last Admin: 07/29/16 08:40 Dose: 100 mg Dextrose (Glutose 15) 15 gm PO ONETIME PRN PRN Reason: Hypoglycemia Docusate Sodium (Colace) 100 mg PO BID [facility] Furosemide (Lasix) 40 mg PO DAILY [facility] Last Admin: 07/29/16 08:40 Dose: 40 mg Gabapentin (Neurontin) 300 mg PO TID [facility] Last Admin: 07/29/16 13:04 Dose: 300 mg Ceftriaxone Sodium 1 gm/ (Sodium Chloride) 50 mls @ 100 mls/hr IV Q24H [facility] Last Admin: 07/28/16 20:55 Dose: 100 mls/hr Insulin Aspart (Novolog) 0 unit SUBCUT ASDIRECTED [facility] PRN Reason: Protocol Last Admin: 07/29/16 17:12 Dose: 2 unit Lactulose (Chronulac) 20 gm PO BID [facility] Last Admin: 07/29/16 18:36 Dose: 20 gm Levothyroxine Sodium (Levothyroxine) 25 mcg PO ACBREAKFAST [facility] Last Admin: 07/29/16 07:26 Dose: 25 mcg Levothyroxine Sodium (Synthroid) 200 mcg PO ACBREAKFAST [facility] Last Admin: 07/29/16 07:26 Dose: 200 mcg Lorazepam (Ativan) 1 mg IV Q6H PRN PRN Reason: Nausea/Vomiting Metoprolol Succinate (Toprol Xl) 250 mg PO DAILY [facility] Last Admin: 07/29/16 08:39 Dose: 250 mg Oxycodone HCl (Oxycontin) 20 mg PO Q12H [facility] Last Admin: 07/29/16 09:56 Dose: 20 mg Oxycodone HCl (Oxycodone) 0 mg PO Q4H PRN PRN Reason: Pain Pantoprazole Sodium (Protonix) 40 mg PO BID [facility] Last Admin: 07/29/16 11:14 Dose: 40 mg Potassium Chloride (Klor-Con M20) 20 meq PO BIDMEALS [facility] Last Admin: 07/29/16 17:11 Dose: 20 meq Prochlorperazine Maleate (Compazine) 10 mg PO TID PRN PRN Reason: Nausea/Vomiting Zolpidem Tartrate (Ambien) 5 mg PO BEDTIME PRN PRN Reason: Sleep Discontinued Medications Dextrose/Water (Dextrose 50% In Water) 50 ml IVPUSH ONETIME ONE Stop: 07/27/16 16:38 Last Admin: 07/27/16 16:41 Dose: 50 ml Docusate Sodium (Colace) 100 mg PO BID PRN PRN Reason: Constipation Hydromorphone HCl (Dilaudid) 1 mg IVPUSH ONETIME ONE Stop: 07/27/16 19:24 Last Admin: 07/27/16 19:35 Dose: 1 mg Dextrose/Sodium Chloride (Dextrose 5%-1/2 Ns) 1,000 mls @ 200 mls/hr IV ASDIRECTED [facility] Last Admin: 07/27/16 17:25 Dose: 200 mls/hr Ceftriaxone Sodium 1 gm/ (Sodium Chloride) 50 mls @ 100 mls/hr IV Q24H [facility] Last Admin: 07/27/16 19:40 Dose: 100 mls/hr Sodium Chloride (Normal Saline) 1,000 mls @ 125 mls/hr IV ASDIRECTED [facility] Last Admin: 07/28/16 07:25 Dose: 125 mls/hr Lidocaine HCl (Xylocaine 2% Jelly) 10 ml MUCMEM ONETIME ONE Stop: 07/27/16 20:42 Last Admin: 07/27/16 21:50 Dose: 10 ml Ondansetron HCl (Zofran) 4 mg IVPUSH ONETIME ONE Stop: 07/27/16 19:25 Last Admin: 07/27/16 19:35 Dose: 4 mg Pantoprazole Sodium (Protonix Iv) 40 mg IVPUSH Q12H [facility] Last Admin: 07/28/16 21:32 Dose: 40 mg Pantoprazole Sodium (Protonix Iv) Confirm Administered Dose 40 mg .ROUTE .STK -MED ONE Stop: 07/27/16 22:58 Last Admin: 07/27/16 22:59 Dose: Not Given - Exam Quality Assessment: urine catheter, DVT prophylaxis General: alert, oriented, cooperative Lungs: Clear to auscultation, Normal respiratory effort Cardiovascular: Regular Rate, Regular Rhythm, No Murmurs Abdomen: bowel sounds present, soft, no tenderness, no distension Extremities: no edema Skin: warm, dry, intact - Problem List Review Problem List Initiated/Reviewed/Updated: Yes - My Orders Last 24 Hours: My Active Orders 07/29/16 18:00 Lactulose [Chronulac] 20 gm PO BID 07/29/16 21:00 Docusate Sodium [Colace] 100 mg PO BID glipiZIDE [Glipizide] 5 mg PO BID metFORMIN [Glucophage] 850 mg PO TID - Plan Plan:: ASSESSMENT / PLAN Urinary Tract infection-history of chronic indwelling catheter, secondary to prostate cancer -Rocephin 1 gram IV every 24 hours -[place] cath changed -Saline lock IV DELIRIUM-secondary to urinary tract infection, now resolved Diabetes Type 2, complication hypoglycemia-blood sugars have been somewhat higher now that appetite has improved -monitor blood glucose 4 times a day -resume therapy with metformin and glipizide -POC blood glucose -Sliding scale NovoLog Maintenance issues -Nutrition: consistent carb diet -[place] catheter ;' changed in ER -DVT: scd CODE STATUS: DNR Admission status: Admit to ICU Admission justification. This patient will be admitted for inpatient services and is medically appropriate meeting medical necessity for inpatient admission as outlined in my documentation. I reasonably expect the patient will require inpatient services that span. Time over 2 midnights. I reasonably expect this patient to be discharged or transferred within 96 hours after admission to the critical [facility]. Disposition;because of weakness will require [facility] for restorative physical therapy and occupational therapy Primary care provider: Dr. Dejesus Hospitalist; Dominique
[2016-07-29] MEDS: cefTRIAXone 1 GM in Sodium Chloride 0.9% 50 ML IV SCH (20:57)
[2016-07-29] MEDS: Docusate Sodium 100 MG Cap PO SCH (21:06)
[2016-07-30] MEDS: Levothyroxine 25 MCG Tab PO SCH (09:00)
[2016-07-30] MEDS: glipiZIDE 5 MG Tab PO SCH ×2 (09:00→17:34)
[2016-07-30] MEDS: Levothyroxine 100 MCG Tab PO SCH (09:01)
[2016-07-30] MEDS: Potassium Chloride 20 MEQ Tab.ER PO SCH ×2 (09:01→17:35)
[2016-07-30] MEDS: Pantoprazole 40 MG Tab.CR PO SCH ×2 (09:04→21:48)
[2016-07-30] MEDS: Allopurinol 100 MG Tab PO SCH (09:04)
[2016-07-30] MEDS: Docusate Sodium 100 MG Cap PO SCH ×2 (09:05→21:46)
[2016-07-30] MEDS: Furosemide 40 MG Tab PO SCH (09:05)
[2016-07-30] MEDS: Gabapentin 300 MG Cap PO SCH ×3 (09:05→21:46)
[2016-07-30] MEDS: Lactulose Soln 10 GM/15 ML 15 ML UD Cup PO SCH ×2 (09:06→21:49)
[2016-07-30] MEDS: Metoprolol Succinate 50 MG Tab.ER PO SCH (09:06)
[2016-07-30] MEDS: oxyCODONE ER 20 MG TAB.ER PO SCH ×2 (09:41→22:03)
[2016-07-30] MEDS ORDERED: Ciprofloxacin 500 MG Tab PO SCH (10:00)
[2016-07-30] MEDS: Insulin Aspart 100 Units/ML 3 ML Pen SUBCUT SCH ×2 (11:28→21:45)
--- NOTE | 2016-07-30 12:40 | PCM.PN ---
- General Info Date of Service: 07/30/16 Functional Status: Reports: pain controlled - Review of Systems General: Reports: Fever, Weakness. Denies: Chills Pulmonary: Reports: no symptoms Cardiovascular: Reports: No Symptoms Gastrointestinal: Reports: No symptoms Systems Review Comment:: This patient is feeling well this morning, he did have recurrent temperature elevation during the night to 101.5. Vital signs have been stable, energy level mildly improved, and appetite seems to be better. - Patient Data Vitals - most recent: Last Vital Signs Temp 100.1 F 07/30/16 10:40 Pulse 67 07/30/16 09:06 Resp 16 07/30/16 10:40 BP 139/87 07/30/16 10:40 Pulse Ox 91 L 07/30/16 10:40 Weight - most recent: 211 lb 3.245 oz I&O - last 24 hours: Intake & Output 07/29/16 07/30/16 07/30/16 22:59 06:59 14:59 Intake Total 480 1080 Output Total 2375 325 Balance -1895 -325 1080 Med Orders - Current: Current Medications Acetaminophen (Tylenol) 650 mg PO Q4H PRN PRN Reason: Pain (Mild 1-3)/fever Albuterol (Proventil Neb Soln) 2.5 mg NEB Q4H PRN PRN Reason: Shortness Of Breath/wheezing Allopurinol (Zyloprim) 100 mg PO DAILY [facility] Last Admin: 07/30/16 09:04 Dose: 100 mg Ciprofloxacin (Ciprofloxacin Hcl) 500 mg PO BID [facility] Last Admin: 07/30/16 09:44 Dose: 500 mg Dextrose (Glutose 15) 15 gm PO ONETIME PRN PRN Reason: Hypoglycemia Docusate Sodium (Colace) 100 mg PO BID [facility] Last Admin: 07/30/16 09:05 Dose: 100 mg Furosemide (Lasix) 40 mg PO DAILY [facility] Last Admin: 07/30/16 09:05 Dose: 40 mg Gabapentin (Neurontin) 300 mg PO TID [facility] Last Admin: 07/30/16 09:05 Dose: 300 mg Glipizide (Glucotrol) 5 mg PO BIDAC [facility] Last Admin: 07/30/16 09:00 Dose: 5 mg Heparin Sodium (Porcine) (Heparin Lock Flush 100 Units/Ml Syringe) 500 units FLUSH ASDIRECTED PRN PRN Reason: IV Use Last Admin: 07/29/16 21:50 Dose: 500 units Insulin Aspart (Novolog) 0 unit SUBCUT ASDIRECTED [facility] PRN Reason: Protocol Last Admin: 07/30/16 11:28 Dose: 2 unit Lactulose (Chronulac) 20 gm PO BID [facility] Last Admin: 07/30/16 09:06 Dose: 20 gm Levothyroxine Sodium (Levothyroxine) 25 mcg PO ACBREAKFAST [facility] Last Admin: 07/30/16 09:00 Dose: 25 mcg Levothyroxine Sodium (Synthroid) 200 mcg PO ACBREAKFAST [facility] Last Admin: 07/30/16 09:01 Dose: 200 mcg Lorazepam (Ativan) 1 mg IV Q6H PRN PRN Reason: Nausea/Vomiting Metformin HCl (Glucophage) 850 mg PO TID@0800,1200,1700 [facility] Last Admin: 07/30/16 11:28 Dose: 850 mg Metoprolol Succinate (Toprol Xl) 250 mg PO DAILY [facility] Last Admin: 07/30/16 09:06 Dose: 250 mg Oxycodone HCl (Oxycontin) 20 mg PO Q12H [facility] Last Admin: 07/30/16 09:41 Dose: 20 mg Oxycodone HCl (Oxycodone) 0 mg PO Q4H PRN PRN Reason: Pain Pantoprazole Sodium (Protonix) 40 mg PO BID [facility] Last Admin: 07/30/16 09:04 Dose: 40 mg Potassium Chloride (Klor-Con M20) 20 meq PO BIDMEALS [facility] Last Admin: 07/30/16 09:01 Dose: 20 meq Prochlorperazine Maleate (Compazine) 10 mg PO TID PRN PRN Reason: Nausea/Vomiting Zolpidem Tartrate (Ambien) 5 mg PO BEDTIME PRN PRN Reason: Sleep Discontinued Medications Dextrose/Water (Dextrose 50% In Water) 50 ml IVPUSH ONETIME ONE Stop: 07/27/16 16:38 Last Admin: 07/27/16 16:41 Dose: 50 ml Docusate Sodium (Colace) 100 mg PO BID PRN PRN Reason: Constipation Hydromorphone HCl (Dilaudid) 1 mg IVPUSH ONETIME ONE Stop: 07/27/16 19:24 Last Admin: 07/27/16 19:35 Dose: 1 mg Dextrose/Sodium Chloride (Dextrose 5%-1/2 Ns) 1,000 mls @ 200 mls/hr IV ASDIRECTED [facility] Last Admin: 07/27/16 17:25 Dose: 200 mls/hr Ceftriaxone Sodium 1 gm/ (Sodium Chloride) 50 mls @ 100 mls/hr IV Q24H [facility] Last Admin: 07/27/16 19:40 Dose: 100 mls/hr Sodium Chloride (Normal Saline) 1,000 mls @ 125 mls/hr IV ASDIRECTED [facility] Last Admin: 07/28/16 07:25 Dose: 125 mls/hr Ceftriaxone Sodium 1 gm/ (Sodium Chloride) 50 mls @ 100 mls/hr IV Q24H [facility] Last Admin: 07/29/16 20:57 Dose: 100 mls/hr Lidocaine HCl (Xylocaine 2% Jelly) 10 ml MUCMEM ONETIME ONE Stop: 07/27/16 20:42 Last Admin: 07/27/16 21:50 Dose: 10 ml Ondansetron HCl (Zofran) 4 mg IVPUSH ONETIME ONE Stop: 07/27/16 19:25 Last Admin: 07/27/16 19:35 Dose: 4 mg Pantoprazole Sodium (Protonix Iv) 40 mg IVPUSH Q12H [facility] Last Admin: 07/28/16 21:32 Dose: 40 mg Pantoprazole Sodium (Protonix Iv) Confirm Administered Dose 40 mg .ROUTE .STK -MED ONE Stop: 07/27/16 22:58 Last Admin: 07/27/16 22:59 Dose: Not Given - Exam Quality Assessment: DVT prophylaxis General: alert, oriented, cooperative, no acute distress Lungs: Clear to auscultation, Normal respiratory effort Cardiovascular: Regular Rate, Regular Rhythm, No Murmurs Abdomen: bowel sounds present, soft, no tenderness, no distension Extremities: no edema Skin: warm, dry, intact - Problem List Review Problem List Initiated/Reviewed/Updated: Yes - My Orders Last 24 Hours: My Active Orders 07/29/16 18:00 Lactulose [Chronulac] 20 gm PO BID 07/29/16 20:35 Heparin Sodium [Heparin Lock Flush 100 Units/ML Syringe] 500 units FLUSH ASDIRECTED PRN 07/29/16 21:00 Docusate Sodium [Colace] 100 mg PO BID 07/30/16 07:30 glipiZIDE [Glucotrol] 5 mg PO BIDAC 07/30/16 08:00 metFORMIN [Glucophage] 850 mg PO TID@0800,1200,1700 07/30/16 10:00 Ciprofloxacin [Ciprofloxacin HCl] 500 mg PO BID - Plan Plan:: ASSESSMENT / PLAN Urinary Tract infection-history of chronic indwelling catheter, secondary to prostate cancer-culture has not grown out Proteus -Ciprofloxacin 500 mg by mouth twice a day -[place] cath changed -Saline lock IV DELIRIUM-secondary to urinary tract infection, now resolved Diabetes Type 2, complication hypoglycemia-blood sugars have been somewhat higher now that appetite has improved -monitor blood glucose 4 times a day -Continue therapy with metformin and glipizide -POC blood glucose -Sliding scale NovoLog Maintenance issues -Nutrition: consistent carb diet -[place] catheter ;' changed in ER -DVT: scd CODE STATUS: DNR Admission status: Admit to ICU Admission justification. This patient will be admitted for inpatient services and is medically appropriate meeting medical necessity for inpatient admission as outlined in my documentation. I reasonably expect the patient will require inpatient services that span. Time over 2 midnights. I reasonably expect this patient to be discharged or transferred within 96 hours after admission to the critical access hospital. Disposition;because of weakness will require skilled nursing placement tomorrow for restorative physical therapy and occupational therapy Primary care provider: Dr. Dejesus Hospitalist; Dominique
[2016-07-30] MEDS ORDERED: Vancomycin 1 GM SDV IV SCH (18:00)
[2016-07-30] MEDS: Sodium Chloride 0.9% 1,000 ML IV SCH (18:04)
[2016-07-30] MEDS: Piperacillin/Tazobactam/Dext 3.375 GM in Premix Bag 1 BAG IV SCH ×2 (18:07→23:45)
[2016-07-30] MEDS: Levofloxacin/Dextrose 5%-Water 500 MG in Premix Bag 1 BAG IV SCH (19:50)
[2016-07-30] MEDS: Vancomycin 1.4 GM in Sodium Chloride 0.9% 250 ML IV SCH (21:20)
[2016-07-31] MEDS ORDERED: Sodium Chloride 0.9% 10 ML Syringe FLUSH PRN (05:49)
[2016-07-31] MEDS: oxyCODONE ER 20 MG TAB.ER PO SCH ×2 (05:53→17:52)
[2016-07-31] MEDS: Sodium Chloride 0.9% 1,000 ML IV SCH (06:01)
[2016-07-31] MEDS: Piperacillin/Tazobactam/Dext 3.375 GM in Premix Bag 1 BAG IV SCH ×3 (06:52→18:04)
[2016-07-31] MEDS: glipiZIDE 5 MG Tab PO SCH ×2 (07:57→17:49)
[2016-07-31] MEDS: Levothyroxine 25 MCG Tab PO SCH (07:58)
[2016-07-31] MEDS: Levothyroxine 100 MCG Tab PO SCH (07:58)
[2016-07-31] MEDS: Potassium Chloride 20 MEQ Tab.ER PO SCH ×2 (07:59→17:53)
[2016-07-31] MEDS: Vancomycin 1.4 GM in Sodium Chloride 0.9% 250 ML IV SCH ×2 (08:03→20:15)
[2016-07-31] MEDS: Docusate Sodium 100 MG Cap PO SCH ×2 (08:57→20:24)
[2016-07-31] MEDS: Lactulose Soln 10 GM/15 ML 15 ML UD Cup PO SCH ×2 (08:57→20:24)
[2016-07-31] MEDS: Gabapentin 300 MG Cap PO SCH ×3 (08:58→20:25)
[2016-07-31] MEDS: Pantoprazole 40 MG Tab.CR PO SCH ×2 (08:58→20:25)
[2016-07-31] MEDS: Furosemide 40 MG Tab PO SCH (08:58)
[2016-07-31] MEDS: Allopurinol 100 MG Tab PO SCH (08:59)
[2016-07-31] MEDS: Metoprolol Succinate 50 MG Tab.ER PO SCH (09:00)
--- NOTE | 2016-07-31 09:09 | CR ---
Chest 2V HISTORY: Metastatic prostate cancer recurrent fever. COMPARISON: CT chest 06/02/2016. FINDINGS: Patchy infiltrate right lung base and left lung base. Right-sided Port-A-Cath. Cardiac siz e stable. No acute congestive change. Innumerable small pulmonary nodules. There are some sclerotic areas of density within the thoracic spine and proximal right humerus compatible with metastatic dis ease Impression: Patchy infiltrate right and left lung base with multiple pulmonary nodules.
--- NOTE | 2016-07-31 15:30 | PCM.PN ---
- General Info Date of Service: 07/31/16 Functional Status: Reports: pain controlled, ambulating, urinating - Review of Systems General: Reports: Fever, Weakness. Denies: Chills Pulmonary: Reports: shortness of breath, cough. Denies: pleuritic chest pain, sputum, hemoptysis, wheezing Cardiovascular: Reports: Dyspnea on Exertion. Denies: Chest Pain, Palpitations , Orthopnea, PND, Edema Gastrointestinal: Reports: No symptoms Systems Review Comment:: This patient has improved since yesterday, after significant temperature elevation yesterday afternoon further evaluation was performed and he has evidence of bilateral infiltrates on chest x-ray, not seen at the time of admission. He's been placed on broad-spectrum antibiotics and does feel improved today and has not yet had significant temperature elevation since yesterday afternoon. - Patient Data Vitals - most recent: Last Vital Signs Temp 100.3 F 07/31/16 14:50 Pulse 79 07/31/16 14:50 Resp 16 07/31/16 14:50 BP 118/75 07/31/16 14:50 Pulse Ox 95 07/31/16 14:50 Weight - most recent: 211 lb 3.245 oz I&O - last 24 hours: Intake & Output 07/31/16 07/31/16 07/31/16 06:59 14:59 22:59 Intake Total 2008 780 Output Total 400 Balance 1608 780 Lab Results last 24 hrs: Laboratory Results - last 24 hr 07/30/16 07/30/16 07/30/16 Range/Units 17:10 17:10 18:13 WBC 5.2 (4.5-11.0) K/uL RBC 3.47 L (4.30-5.90) M/uL Hgb 10.3 L (12.0-15.0) g/dL Hct 32.0 L (40.0-54.0) % MCV 92 (80-98) fL MCH 30 (27-31) pg MCHC 32 (32-36) % Plt Count 258 (150-400) K/uL Neut % (Auto) 72 H (36-66) % Lymph % (Auto) 9 L (24-44) % Collin % (Auto) 17 H (2-6) % Eos % (Auto) 2 (2-4) % Baso % (Auto) 0 (0-1) % Sodium 129 L (140-148) mmol/L Potassium 4.4 (3.6-5.2) mmol/L Chloride 98 L (100-108) mmol/L Carbon Dioxide 22 (21-32) mmol/L Anion Gap 13.4 (5.0-14.0) mmol/L BUN 14 (7-18) mg/dL Creatinine 1.4 H (0.8-1.3) mg/dL Est Cr Clr Drug Dosing 48.36 mL/min Estimated GFR (MDRD) 49 L (>60) Glucose 96 (74-106) mg/dL Calcium 7.0 L (8.5-10.1) mg/dL Total Bilirubin 0.6 (0.2-1.0) mg/dL AST 98 H D (15-37) U/L ALT 97 H (12-78) U/L Alkaline Phosphatase 133 H (46-116) U/L Total Protein 6.1 L (6.4-8.2) g/dL Albumin 2.3 L (3.4-5.0) g/dL Globulin 3.8 H (2.3-3.5) g/dL Albumin/Globulin Ratio 0.6 L (1.2-2.2) Urine Color Yellow Urine Appearance Clear Urine pH 5.0 (4.5-8.0) Ur Specific [place] 1.015 (1.008-1.030) Urine Protein 30 H (NEGATIVE) mg/dL Urine Glucose (UA) Normal (NEGATIVE) mg/dL Urine Ketones Negative (NEGATIVE) mg/dL Urine Occult Blood Moderate (NEGATIVE) Urine Nitrite Negative (NEGAITVE) Urine Bilirubin Negative (NEGATIVE) Urine Urobilinogen Normal (NORMAL) mg/dL Ur Leukocyte Esterase Moderate (NEGATIVE) Urine RBC 0-5 (0-5) Urine WBC 0-5 (0-5) Ur Epithelial Cells Not seen Amorphous Sediment Not seen Urine Bacteria Not seen Urine Mucus Not seen 07/31/16 07/31/16 Range/Units 08:50 08:50 WBC 4.9 (4.5-11.0) K/uL RBC 3.46 L (4.30-5.90) M/uL Hgb 10.1 L (12.0-15.0) g/dL Hct 31.7 L (40.0-54.0) % MCV 92 (80-98) fL MCH 29 (27-31) pg MCHC 32 (32-36) % Plt Count 221 (150-400) K/uL Neut % (Auto) 77 H (36-66) % Lymph % (Auto) 9 L (24-44) % Collin % (Auto) 12 H (2-6) % Eos % (Auto) 2 (2-4) % Baso % (Auto) 0 (0-1) % Sodium 129 L (140-148) mmol/L Potassium 3.9 (3.6-5.2) mmol/L Chloride 99 L (100-108) mmol/L Carbon Dioxide 23 (21-32) mmol/L Anion Gap 10.9 (5.0-14.0) mmol/L BUN 13 (7-18) mg/dL Creatinine 1.3 (0.8-1.3) mg/dL Est Cr Clr Drug Dosing 52.08 mL/min Estimated GFR (MDRD) 54 L (>60) Glucose 136 H (74-106) mg/dL Calcium 7.0 L (8.5-10.1) mg/dL Total Bilirubin 0.8 (0.2-1.0) mg/dL AST 40 H (15-37) U/L ALT 72 (12-78) U/L Alkaline Phosphatase 114 (46-116) U/L Total Protein 5.9 L (6.4-8.2) g/dL Albumin 2.2 L (3.4-5.0) g/dL Globulin 3.7 H (2.3-3.5) g/dL Albumin/Globulin Ratio 0.6 L (1.2-2.2) Urine Color Urine Appearance Urine pH (4.5-8.0) Ur Specific [place] (1.008-1.030) Urine Protein (NEGATIVE) mg/dL Urine Glucose (UA) (NEGATIVE) mg/dL Urine Ketones (NEGATIVE) mg/dL Urine Occult Blood (NEGATIVE) Urine Nitrite (NEGAITVE) Urine Bilirubin (NEGATIVE) Urine Urobilinogen (NORMAL) mg/dL Ur Leukocyte Esterase (NEGATIVE) Urine RBC (0-5) Urine WBC (0-5) Ur Epithelial Cells Amorphous Sediment Urine Bacteria Urine Mucus Med Orders - Current: Current Medications Acetaminophen (Tylenol) 650 mg PO Q4H PRN PRN Reason: Pain (Mild 1-3)/fever Last Admin: 07/30/16 14:56 Dose: 650 mg Albuterol (Proventil Neb Soln) 2.5 mg NEB Q4H PRN PRN Reason: Shortness Of Breath/wheezing Allopurinol (Zyloprim) 100 mg PO DAILY [facility] Last Admin: 07/31/16 08:59 Dose: 100 mg Dextrose (Glutose 15) 15 gm PO ONETIME PRN PRN Reason: Hypoglycemia Docusate Sodium (Colace) 100 mg PO BID [facility] Last Admin: 07/31/16 08:57 Dose: Not Given Furosemide (Lasix) 40 mg PO DAILY [facility] Last Admin: 07/31/16 08:58 Dose: 40 mg Gabapentin (Neurontin) 300 mg PO TID [facility] Last Admin: 07/31/16 13:45 Dose: 300 mg Glipizide (Glucotrol) 5 mg PO BIDAC [facility] Last Admin: 07/31/16 07:57 Dose: 5 mg Heparin Sodium (Porcine) (Heparin Lock Flush 100 Units/Ml Syringe) 500 units FLUSH ASDIRECTED PRN PRN Reason: IV Use Last Admin: 07/29/16 21:50 Dose: 500 units Levofloxacin/Dextrose 500 mg/ (Premix) 100 mls @ 100 mls/hr IV Q24H [facility] Last Admin: 07/30/16 19:50 Dose: 100 mls/hr Piperacillin/Tazobactam/ (Dextrose 3.375 gm/ Premix) 50 mls @ 100 mls/hr IV Q6H [facility] Last Admin: 07/31/16 11:38 Dose: 100 mls/hr Vancomycin HCl 1.4 gm/ Sodium (Chloride) 250 mls @ 165 mls/hr IV Q12H [facility] Last Admin: 07/31/16 08:03 Dose: 165 mls/hr Insulin Aspart (Novolog) 0 unit SUBCUT ASDIRECTED [facility] PRN Reason: Protocol Last Admin: 07/30/16 21:45 Dose: 1 unit Lactulose (Chronulac) 20 gm PO BID [facility] Last Admin: 07/31/16 08:57 Dose: Not Given Levothyroxine Sodium (Levothyroxine) 25 mcg PO ACBREAKFAST [facility] Last Admin: 07/31/16 07:58 Dose: 25 mcg Levothyroxine Sodium (Synthroid) 200 mcg PO ACBREAKFAST [facility] Last Admin: 07/31/16 07:58 Dose: 200 mcg Lorazepam (Ativan) 1 mg IV Q6H PRN PRN Reason: Nausea/Vomiting Metformin HCl (Glucophage) 850 mg PO TID@0800,1200,1700 [facility] Last Admin: 07/31/16 11:38 Dose: 850 mg Metoprolol Succinate (Toprol Xl) 250 mg PO DAILY [facility] Last Admin: 07/31/16 09:00 Dose: 250 mg Oxycodone HCl (Oxycodone) 0 mg PO Q4H PRN PRN Reason: Pain Oxycodone HCl (Oxycontin) 20 mg PO Q12H [facility] Last Admin: 07/31/16 05:53 Dose: 20 mg Pantoprazole Sodium (Protonix) 40 mg PO BID [facility] Last Admin: 07/31/16 08:58 Dose: 40 mg Potassium Chloride (Klor-Con M20) 20 meq PO BIDMEALS [facility] Last Admin: 07/31/16 07:59 Dose: 20 meq Prochlorperazine Maleate (Compazine) 10 mg PO TID PRN PRN Reason: Nausea/Vomiting Last Admin: 07/30/16 12:50 Dose: 10 mg Sodium Chloride (Saline Flush) 10 ml FLUSH ASDIRECTED PRN PRN Reason: Keep Vein Open Zolpidem Tartrate (Ambien) 5 mg PO BEDTIME PRN PRN Reason: Sleep Discontinued Medications Ciprofloxacin (Ciprofloxacin Hcl) 500 mg PO BID [facility] Last Admin: 07/30/16 09:44 Dose: 500 mg Dextrose/Water (Dextrose 50% In Water) 50 ml IVPUSH ONETIME ONE Stop: 07/27/16 16:38 Last Admin: 07/27/16 16:41 Dose: 50 ml Docusate Sodium (Colace) 100 mg PO BID PRN PRN Reason: Constipation Hydromorphone HCl (Dilaudid) 1 mg IVPUSH ONETIME ONE Stop: 07/27/16 19:24 Last Admin: 07/27/16 19:35 Dose: 1 mg Dextrose/Sodium Chloride (Dextrose 5%-1/2 Ns) 1,000 mls @ 200 mls/hr IV ASDIRECTED [facility] Last Admin: 07/27/16 17:25 Dose: 200 mls/hr Ceftriaxone Sodium 1 gm/ (Sodium Chloride) 50 mls @ 100 mls/hr IV Q24H [facility] Last Admin: 07/27/16 19:40 Dose: 100 mls/hr Sodium Chloride (Normal Saline) 1,000 mls @ 125 mls/hr IV ASDIRECTED [facility] Last Admin: 07/28/16 07:25 Dose: 125 mls/hr Ceftriaxone Sodium 1 gm/ (Sodium Chloride) 50 mls @ 100 mls/hr IV Q24H [facility] Last Admin: 07/29/16 20:57 Dose: 100 mls/hr Sodium Chloride (Normal Saline) 1,000 mls @ 125 mls/hr IV ASDIRECTED [facility] Last Admin: 07/31/16 06:01 Dose: 125 mls/hr Lidocaine HCl (Xylocaine 2% Jelly) 10 ml MUCMEM ONETIME ONE Stop: 07/27/16 20:42 Last Admin: 07/27/16 21:50 Dose: 10 ml Ondansetron HCl (Zofran) 4 mg IVPUSH ONETIME ONE Stop: 07/27/16 19:25 Last Admin: 07/27/16 19:35 Dose: 4 mg Oxycodone HCl (Oxycontin) 20 mg PO Q12H [facility] Last Admin: 07/30/16 22:03 Dose: 20 mg Pantoprazole Sodium (Protonix Iv) 40 mg IVPUSH Q12H [facility] Last Admin: 07/28/16 21:32 Dose: 40 mg Pantoprazole Sodium (Protonix Iv) Confirm Administered Dose 40 mg .ROUTE .STK -MED ONE Stop: 07/27/16 22:58 Last Admin: 07/27/16 22:59 Dose: Not Given Vancomycin HCl (Vancomycin) 1 gm IV .PHARMACY TO DOSE LUZ MARINA - Exam Quality Assessment: supplemental oxygen, DVT prophylaxis General: alert, oriented, cooperative Lungs: Rales, Rhonchi. No: Decreased breath sounds, Crackles, Wheezing Cardiovascular: Regular Rate, Regular Rhythm, No Murmurs Abdomen: bowel sounds present, soft, no tenderness, no distension Extremities: no edema Skin: warm, dry, intact - Problem List Review Problem List Initiated/Reviewed/Updated: Yes - My Orders Last 24 Hours: My Active Orders 07/30/16 16:28 Blood Culture x2 Reflex Set [OM.PC] Urgent 07/30/16 17:10 CULTURE BLOOD [BC] Stat CULTURE BLOOD [BC] Stat 07/30/16 18:00 Piperacillin/Tazobactam/Dext [Zosyn in Dextrose Iso-Osmotic 3.375 GM] 3.375 gm Premix Bag 1 bag IV Q6H 07/30/16 18:30 Levofloxacin/Dextrose 5%-Water [Levaquin in D5W 500 MG/100 ML] 500 mg Premix Bag 1 bag IV Q24H 07/30/16 20:00 Vancomycin 1.4 gm Sodium Chloride 0.9% [Normal Saline] 250 ml IV Q12H 07/31/16 05:49 Peripheral IV Care [RC] . DIRECTED Sodium Chloride 0.9% [Saline Flush] 10 ml FLUSH ASDIRECTED PRN Peripheral IV Insertion Adult [OM.PC] Routine 07/31/16 15:23 Convert IV to Saline Lock [OM.PC] Routine 08/01/16 05:00 BASIC METABOLIC PANEL,BMP [CHEM] Timed - Plan Plan:: ASSESSMENT / PLAN BILATERAL PNEUMONIA-current fever yesterday, chest x-ray shows bilateral infiltrates -Cultures pending -Continue broad-spectrum antibiotic therapy with vancomycin, Zosyn, and levofloxacin, pending culture results Urinary Tract infection-history of chronic indwelling catheter, secondary to prostate cancer-culture has not grown out Proteus -Current IV antibiotic therapy should provide adequate coverage -casillas cath changed -Saline lock IV DELIRIUM-secondary to urinary tract infection, now resolved Diabetes Type 2, complication hypoglycemia-blood sugars have been somewhat higher now that appetite has improved -monitor blood glucose 4 times a day -Continue therapy with metformin and glipizide -POC blood glucose -Sliding scale NovoLog Maintenance issues -Nutrition: consistent carb diet -[place] catheter ;' changed in ER -DVT: scd CODE STATUS: DNR Admission status: Admit to ICU Admission justification. This patient will be admitted for inpatient services and is medically appropriate meeting medical necessity for inpatient admission as outlined in my documentation. I reasonably expect the patient will require inpatient services that span. Time over 2 midnights. I reasonably expect this patient to be discharged or transferred within 96 hours after admission to the critical access hospital. Disposition;because of weakness will require snf placement tomorrow for restorative physical therapy and occupational therapy Primary care provider: Dr. Dejesus Hospitalist; Dominique
[2016-07-31] MEDS ORDERED: 50% Dextrose in Water 50 ML Syringe IVPUSH ONE (17:53)
[2016-07-31] MEDS ORDERED: 50% Dextrose in Water 50 ML Syringe ONE (17:59)
[2016-07-31] MEDS: Levofloxacin/Dextrose 5%-Water 500 MG in Premix Bag 1 BAG IV SCH (18:43)
[2016-08-01] MEDS: Piperacillin/Tazobactam/Dext 3.375 GM in Premix Bag 1 BAG IV SCH ×3 (00:05→12:18)
[2016-08-01] MEDS: oxyCODONE ER 20 MG TAB.ER PO SCH ×2 (05:25→17:06)
[2016-08-01] MEDS: Levothyroxine 100 MCG Tab PO SCH (08:16)
[2016-08-01] MEDS: Levothyroxine 25 MCG Tab PO SCH (08:16)
[2016-08-01] MEDS: Pantoprazole 40 MG Tab.CR PO SCH ×2 (08:17→21:35)
[2016-08-01] MEDS: Lactulose Soln 10 GM/15 ML 15 ML UD Cup PO SCH (08:17)
[2016-08-01] MEDS: Docusate Sodium 100 MG Cap PO SCH ×2 (08:17→21:36)
[2016-08-01] MEDS: Furosemide 40 MG Tab PO SCH (08:17)
[2016-08-01] MEDS: Gabapentin 300 MG Cap PO SCH ×3 (08:17→21:35)
[2016-08-01] MEDS: Potassium Chloride 20 MEQ Tab.ER PO SCH ×2 (08:17→17:01)
[2016-08-01] MEDS: Allopurinol 100 MG Tab PO SCH (08:18)
[2016-08-01] MEDS: Metoprolol Succinate 50 MG Tab.ER PO SCH (08:18)
[2016-08-01] MEDS: Vancomycin 1.4 GM in Sodium Chloride 0.9% 250 ML IV SCH (08:37)
[2016-08-01] MEDS ORDERED: Loperamide 2 MG Cap ONE (12:25)
[2016-08-01] MEDS ORDERED: Loperamide 2 MG Cap PO PRN (12:52)
--- NOTE | 2016-08-01 13:53 | PCM.PN ---
- General Info Date of Service: 08/01/16 Functional Status: Reports: tolerating diet, ambulating - Review of Systems General: Reports: Weakness. Denies: Fever, Chills Pulmonary: Reports: no symptoms Cardiovascular: Reports: No Symptoms Gastrointestinal: Reports: Abdominal pain, Diarrhea. Denies: Nausea, Vomiting Systems Review Comment:: This patient has remained stable from a respiratory standpoint, vital signs have been good and he has remained afebrile. Unfortunately he has had persistent diarrhea although it has improved somewhat over the past few days. Stool study from this morning is positive for C. difficile. - Patient Data Vitals - most recent: Last Vital Signs Temp 98.3 F 08/01/16 10:52 Pulse 78 08/01/16 10:52 Resp 18 08/01/16 10:52 BP 105/78 08/01/16 10:52 Pulse Ox 91 L 08/01/16 10:52 Weight - most recent: 211 lb 3.245 oz I&O - last 24 hours: Intake & Output 07/31/16 08/01/16 08/01/16 22:59 06:59 14:59 Intake Total 2566 50 300 Output Total 2500 450 Balance 66 -400 300 Lab Results last 24 hrs: Laboratory Results - last 24 hr 08/01/16 Range/Units 04:38 Sodium 133 L (140-148) mmol/L Potassium 3.9 (3.6-5.2) mmol/L Chloride 101 (100-108) mmol/L Carbon Dioxide 23 (21-32) mmol/L Anion Gap 12.9 (5.0-14.0) mmol/L BUN 12 (7-18) mg/dL Creatinine 1.3 (0.8-1.3) mg/dL Est Cr Clr Drug Dosing 52.08 mL/min Estimated GFR (MDRD) 54 L (>60) Glucose 62 L (74-106) mg/dL Calcium 7.2 L (8.5-10.1) mg/dL Venkat Results last 24 hrs: Microbiology 08/01/16 11:50 Clostridium difficile (PCR) - Final Stool / Feces Positive C. Diff Toxin 07/30/16 17:10 Aerobic Blood Culture - Preliminary Blood - Arm, Right NO GROWTH AFTER 1 DAY Anaerobic Blood Culture - Preliminary NO GROWTH AFTER 1 DAY 07/30/16 17:10 Aerobic Blood Culture - Preliminary Blood - Arm, Right NO GROWTH AFTER 1 DAY Anaerobic Blood Culture - Preliminary NO GROWTH AFTER 1 DAY Med Orders - Current: Current Medications Acetaminophen (Tylenol) 650 mg PO Q4H PRN PRN Reason: Pain (Mild 1-3)/fever Last Admin: 07/30/16 14:56 Dose: 650 mg Albuterol (Proventil Neb Soln) 2.5 mg NEB Q4H PRN PRN Reason: Shortness Of Breath/wheezing Allopurinol (Zyloprim) 100 mg PO DAILY [facility] Last Admin: 08/01/16 08:18 Dose: 100 mg Dextrose (Glutose 15) 15 gm PO ONETIME PRN PRN Reason: Hypoglycemia Docusate Sodium (Colace) 100 mg PO BID [facility] Last Admin: 08/01/16 08:17 Dose: Not Given Furosemide (Lasix) 40 mg PO DAILY [facility] Last Admin: 08/01/16 08:17 Dose: 40 mg Gabapentin (Neurontin) 300 mg PO TID [facility] Last Admin: 08/01/16 08:17 Dose: 300 mg Glipizide (Glucotrol) 5 mg PO BIDAC [facility] Last Admin: 07/31/16 17:49 Dose: Not Given Heparin Sodium (Porcine) (Heparin Lock Flush 100 Units/Ml Syringe) 500 units FLUSH ASDIRECTED PRN PRN Reason: IV Use Last Admin: 07/29/16 21:50 Dose: 500 units Levofloxacin/Dextrose 500 mg/ (Premix) 100 mls @ 100 mls/hr IV Q24H [facility] Last Admin: 07/31/16 18:43 Dose: 100 mls/hr Insulin Aspart (Novolog) 0 unit SUBCUT ASDIRECTED [facility] PRN Reason: Protocol Last Admin: 07/30/16 21:45 Dose: 1 unit Lactobacillus Rhamnosus (Culturelle) 2 cap PO BID [facility] Lactulose (Chronulac) 20 gm PO BID [facility] Last Admin: 08/01/16 08:17 Dose: Not Given Levothyroxine Sodium (Levothyroxine) 25 mcg PO ACBREAKFAST [facility] Last Admin: 08/01/16 08:16 Dose: 25 mcg Levothyroxine Sodium (Synthroid) 200 mcg PO ACBREAKFAST [facility] Last Admin: 08/01/16 08:16 Dose: 200 mcg Loperamide HCl (Imodium) 2 mg PO Q4H PRN PRN Reason: Diarrhea Lorazepam (Ativan) 1 mg IV Q6H PRN PRN Reason: Nausea/Vomiting Metformin HCl (Glucophage) 850 mg PO TID@0800,1200,1700 [facility] Last Admin: 08/01/16 12:19 Dose: Not Given Metoprolol Succinate (Toprol Xl) 250 mg PO DAILY [facility] Last Admin: 08/01/16 08:18 Dose: 250 mg Oxycodone HCl (Oxycodone) 0 mg PO Q4H PRN PRN Reason: Pain Oxycodone HCl (Oxycontin) 20 mg PO Q12H [facility] Last Admin: 08/01/16 05:25 Dose: 20 mg Pantoprazole Sodium (Protonix) 40 mg PO BID [facility] Last Admin: 08/01/16 08:17 Dose: 40 mg Potassium Chloride (Klor-Con M20) 20 meq PO BIDMEALS [facility] Last Admin: 08/01/16 08:17 Dose: 20 meq Prochlorperazine Maleate (Compazine) 10 mg PO TID PRN PRN Reason: Nausea/Vomiting Last Admin: 07/30/16 12:50 Dose: 10 mg Sodium Chloride (Saline Flush) 10 ml FLUSH ASDIRECTED PRN PRN Reason: Keep Vein Open Vancomycin HCl (Vancocin 250 Mg/5 Ml Soln) 250 mg PO QID [facility] Zolpidem Tartrate (Ambien) 5 mg PO BEDTIME PRN PRN Reason: Sleep Discontinued Medications Ciprofloxacin (Ciprofloxacin Hcl) 500 mg PO BID [facility] Last Admin: 07/30/16 09:44 Dose: 500 mg Dextrose/Water (Dextrose 50% In Water) 50 ml IVPUSH ONETIME ONE Stop: 07/27/16 16:38 Last Admin: 07/27/16 16:41 Dose: 50 ml Dextrose/Water (Dextrose 50% In Water) 25 ml IVPUSH ONETIME ONE Stop: 07/31/16 17:54 Last Admin: 07/31/16 18:01 Dose: 25 ml Dextrose/Water (Dextrose 50% In Water) Confirm Administered Dose 50 ml .ROUTE .STK-MED ONE Stop: 07/31/16 18:00 Last Admin: 07/31/16 18:04 Dose: Not Given Docusate Sodium (Colace) 100 mg PO BID PRN PRN Reason: Constipation Hydromorphone HCl (Dilaudid) 1 mg IVPUSH ONETIME ONE Stop: 07/27/16 19:24 Last Admin: 07/27/16 19:35 Dose: 1 mg Dextrose/Sodium Chloride (Dextrose 5%-1/2 Ns) 1,000 mls @ 200 mls/hr IV ASDIRECTED [facility] Last Admin: 07/27/16 17:25 Dose: 200 mls/hr Ceftriaxone Sodium 1 gm/ (Sodium Chloride) 50 mls @ 100 mls/hr IV Q24H [facility] Last Admin: 07/27/16 19:40 Dose: 100 mls/hr Sodium Chloride (Normal Saline) 1,000 mls @ 125 mls/hr IV ASDIRECTED [facility] Last Admin: 07/28/16 07:25 Dose: 125 mls/hr Ceftriaxone Sodium 1 gm/ (Sodium Chloride) 50 mls @ 100 mls/hr IV Q24H [facility] Last Admin: 07/29/16 20:57 Dose: 100 mls/hr Piperacillin/Tazobactam/ (Dextrose 3.375 gm/ Premix) 50 mls @ 100 mls/hr IV Q6H [facility] Last Admin: 08/01/16 12:18 Dose: 100 mls/hr Sodium Chloride (Normal Saline) 1,000 mls @ 125 mls/hr IV ASDIRECTED [facility] Last Admin: 07/31/16 06:01 Dose: 125 mls/hr Vancomycin HCl 1.4 gm/ Sodium (Chloride) 250 mls @ 165 mls/hr IV Q12H [facility] Last Admin: 08/01/16 08:37 Dose: 165 mls/hr Lidocaine HCl (Xylocaine 2% Jelly) 10 ml MUCMEM ONETIME ONE Stop: 07/27/16 20:42 Last Admin: 07/27/16 21:50 Dose: 10 ml Loperamide HCl (Imodium) Confirm Administered Dose 2 mg .ROUTE .STK-MED ONE Stop: 08/01/16 12:26 Last Admin: 08/01/16 13:09 Dose: Not Given Ondansetron HCl (Zofran) 4 mg IVPUSH ONETIME ONE Stop: 07/27/16 19:25 Last Admin: 07/27/16 19:35 Dose: 4 mg Oxycodone HCl (Oxycontin) 20 mg PO Q12H [facility] Last Admin: 07/30/16 22:03 Dose: 20 mg Pantoprazole Sodium (Protonix Iv) 40 mg IVPUSH Q12H [facility] Last Admin: 07/28/16 21:32 Dose: 40 mg Pantoprazole Sodium (Protonix Iv) Confirm Administered Dose 40 mg .ROUTE .STK -MED ONE Stop: 07/27/16 22:58 Last Admin: 07/27/16 22:59 Dose: Not Given Vancomycin HCl (Vancomycin) 1 gm IV .PHARMACY TO DOSE LUZ MARINA - Exam Quality Assessment: DVT prophylaxis General: alert, oriented, cooperative, no acute distress Lungs: Clear to auscultation, Normal respiratory effort Cardiovascular: Regular Rate, Regular Rhythm, No Murmurs Abdomen: bowel sounds present, soft, no tenderness, no distension Extremities: no edema Skin: warm, dry, intact - Problem List Review Problem List Initiated/Reviewed/Updated: Yes - My Orders Last 24 Hours: My Active Orders 07/31/16 15:23 Convert IV to Saline Lock [OM.PC] Routine 08/01/16 12:52 Loperamide [Imodium] 2 mg PO Q4H PRN 08/01/16 13:00 Lactobacillus Rhamnosus GG [Culturelle] 2 cap PO BID 08/01/16 13:15 Vancomycin [Vancocin 250 MG/5 ML Soln] 250 mg PO QID - Plan Plan:: ASSESSMENT / PLAN BILATERAL PNEUMONIA-stable from a respiratory standpoint, remains on supplemental oxygen. Vital signs have been stable and he has remained afebrile -Cultures negative thus far -Continue IV levofloxacin C. DIFFICILE COLITIS-diarrhea has improved over the past few days although he has been on IV vancomycin. Repeat evaluation today is positive for C. difficile. -Vancomycin 250 mg by mouth 4 times a day Urinary Tract infection-history of chronic indwelling catheter, secondary to prostate cancer-culture has not grown out Proteus -Current IV antibiotic therapy should provide adequate coverage -casillas cath changed -Saline lock IV DELIRIUM-secondary to urinary tract infection, now resolved Diabetes Type 2, complication hypoglycemia-glucose levels have been low again -monitor blood glucose 4 times a day -Hold metformin and glipizide -POC blood glucose -Sliding scale NovoLog Maintenance issues -Nutrition: consistent carb diet -[place] catheter ;' changed in ER -DVT: scd CODE STATUS: DNR Admission status: Admit to ICU Admission justification. This patient will be admitted for inpatient services and is medically appropriate meeting medical necessity for inpatient admission as outlined in my documentation. I reasonably expect the patient will require inpatient services that span. Time over 2 midnights. I reasonably expect this patient to be discharged or transferred within 96 hours after admission to the critical access hospital. Disposition;because of weakness will require alf placement tomorrow for restorative physical therapy and occupational therapy Primary care provider: Dr. Dejesus Hospitalist; Dominique
[2016-08-01] MEDS: Lactobacillus Rhamnosus GG (Probiotic) Cap PO SCH ×2 (14:10→21:35)
[2016-08-01] MEDS: Vancomycin 250 MG/5 ML ML Oral Solution PO SCH ×3 (14:21→21:35)
--- NOTE | 2016-08-01 14:25 | PCM.DCSUM1 ---
Discharge Summary - Hospital Course Brief History: This patient is a 76-year-old gentleman who was admitted through the emergency department with weakness, and progressive fatigue secondary to metastatic prostate cancer and urinary tract infection. - Discharge Data Discharge Date: 08/03/16 Discharge Disposition: DC/Tfer to SNF 03 Condition: Fair - Discharge Diagnosis/Problem(s) (1) Pneumonia SNOMED Code(s): 940830377 ICD Code: J18.9 - PNEUMONIA, UNSPECIFIED ORGANISM Status: Acute Current Visit: Yes (2) Clostridium difficile colitis SNOMED Code(s): 085521303 ICD Code: A04.7 - ENTEROCOLITIS DUE TO CLOSTRIDIUM DIFFICILE Status: Acute Current Visit: Yes (3) Diabetes mellitus type 2 with complications SNOMED Code(s): 29733613, 64347010925084 ICD Code: E11.8 - TYPE 2 DIABETES MELLITUS WITH UNSPECIFIED COMPLICATIONS Status: Acute Priority: High Current Visit: Yes Qualifiers: Diabetes mellitus senior living insulin use: without terminal gauger supervisor use Qualified Code(s): E11.8 - Type 2 diabetes mellitus with unspecified complications (4) Hypoglycemia SNOMED Code(s): 649013939 ICD Code: E16.2 - HYPOGLYCEMIA, UNSPECIFIED Status: Acute Priority: High Current Visit: Yes (5) UTI (urinary tract infection) SNOMED Code(s): 17519738 ICD Code: N39.0 - URINARY TRACT INFECTION, SITE NOT SPECIFIED Status: Acute Priority: High Current Visit: Yes Qualifiers: Urinary tract infection type: catheter-associated UTI Indwelling urinary catheter type: indwelling urethral catheter Encounter type: initial encounter Qualified Code(s): T83.511A - Infection and inflammatory reaction due to indwelling urethral catheter, initial encounter; N39.0 - Urinary tract infection , site not specified (6) Dehydration SNOMED Code(s): 90768630 ICD Code: E86.0 - DEHYDRATION Status: Acute Current Visit: No - Patient Summary/Data Consults: Consultations 07/27/16 22:05 Consult to Spiritual Care [CONS] Routine OT Evaluation and Treatment [CONS] Routine Please Evaluate and Treat. OT Reason for Consult: Discharge Planning This query below is only for informational purposes and is not editable. PT Evaluation and Treatment [CONS] Routine Please Evaluate and Treat. PT Reason for Consult: Ambulation This query below is only for informational purposes and is not editable. 07/28/16 15:18 Consult to Medical Science Liaison [Consult to Diabetic Nurse Specialist] [CONS] Routine Comment: Physician Instructions: Reason for Consult: pt needs education re: recog. of high and low blood sugar Hospital Course: This patient has a known history of metastatic prostate cancer, for several days prior to admission developed progressive weakness and fatigue. He has continued to actively treat his widely metastatic prostate cancer. On evaluation in the emergency department was found to have evidence of urinary tract infection. He does have chronic indwelling Johnson catheter because of bladder outlet obstruction. On admission he was given IV fluids for hydration and started on IV antibiotic therapy with Rocephin. Urine culture was obtained at the time of admission and later grow Proteus which was sensitive to most antibiotics. Initially seemed to be improving but then redeveloped temperature elevations on reassessment chest x-ray showed evidence of a right lung infiltrate. Blood cultures were obtained which remained negative up until the time of discharge. Initially was treated with broad-spectrum IV antibiotics but with negative cultures antibiotic therapy was narrowed to levofloxacin. He will be treated with 4 days of levofloxacin after discharge. He had been experiencing difficulty with diarrhea prior to admission and throughout his hospital stay. On admission C. difficile study was obtained in the stool and was found to be negative. One day prior to discharge because of persistent diarrhea C. difficile study was repeated and found to be positive. He was started on oral antibiotic therapy with vancomycin 250 mg 4 times a day. He will be discharged to [facility] on the same medication dosing and frequency for an additional 13 days. Prior to discharge a repeat stool was obtained for C. difficile and found to be negative. Because of his significant weakness he will be discharged to [facility] for restorative physical therapy and occupational therapy. Because of diabetes his blood sugars were monitored, on admission he was found to be significantly hypoglycemic. His glipizide and metformin were held, as his appetite improved he was started back on the medications but again developed recurrent hypoglycemia. Medications were held and on discharge the glipizide will be discontinued and the metformin dose will be decreased to 500 mg twice daily. Activity will be as tolerated and he will resume his usual diabetic low-sodium diet. - Patient Instructions Diet: Usual Diet as Tolerated Activity: As Tolerated - Discharge Plan Prescriptions/Med Rec: Levofloxacin [Levaquin] 500 mg PO Q24H #4 tablet Vancomycin [Vancocin 250 MG/5 ML Soln] 250 mg PO QID #260 ml metFORMIN [Glucophage XR] 500 mg PO BIDMEALS #60 tab.er Home Medications: Home Meds Levothyroxine 225 mcg PO DAILY 01/22/13 [History] Prochlorperazine [Compazine] 10 mg PO TID PRN 08/25/13 [History] oxyCODONE ER [OxyCONTIN] 20 mg PO Q12HR 08/25/13 [History] Furosemide 40 mg PO DAILY 12/18/14 [History] Lidocaine 2% [Xylocaine 2% Jelly] 1 applic TOP ASDIRECTED PRN 12/18/14 [History] Potassium Chloride [Klor-Con M20] 20 meq PO BIDMEALS 12/18/14 [History] oxyCODONE HCl [Roxicodone] 5 - 10 mg PO Q4H PRN 12/18/14 [History] Dexamethasone 8 mg PO ASDIRECTED 02/04/16 [History] Gabapentin [Neurontin] 300 mg PO TID 02/04/16 [History] Metoprolol Succinate [Toprol XL] 250 mg PO DAILY 03/20/16 [History] Allopurinol [Zyloprim] 100 mg PO DAILY 03/24/16 [History] Levofloxacin [Levaquin] 500 mg PO Q24H #4 tablet 08/01/16 [Rx] Vancomycin [Vancocin 250 MG/5 ML Soln] 250 mg PO QID #260 ml 08/01/16 [Rx] metFORMIN [Glucophage XR] 500 mg PO BIDMEALS #60 tab.er 08/01/16 [Rx] Forms: ED Department Discharge Referrals: Alonso Dejesus MD [Primary Care Provider] - - Patient Data Vitals - Most Recent: Last Vital Signs Temp 98.3 F 08/01/16 10:52 Pulse 78 08/01/16 10:52 Resp 18 08/01/16 10:52 BP 105/78 08/01/16 10:52 Pulse Ox 91 L 08/01/16 10:52 Weight - Most Recent: 211 lb 3.245 oz I&O - Last 24 hours: Intake & Output 07/31/16 08/01/16 08/01/16 22:59 06:59 14:59 Intake Total 2566 50 300 Output Total 2500 450 Balance 66 -400 300 Lab Results - Last 24 hrs: Laboratory Results - last 24 hr 08/01/16 Range/Units 04:38 Sodium 133 L (140-148) mmol/L Potassium 3.9 (3.6-5.2) mmol/L Chloride 101 (100-108) mmol/L Carbon Dioxide 23 (21-32) mmol/L Anion Gap 12.9 (5.0-14.0) mmol/L BUN 12 (7-18) mg/dL Creatinine 1.3 (0.8-1.3) mg/dL Est Cr Clr Drug Dosing 52.08 mL/min Estimated GFR (MDRD) 54 L (>60) Glucose 62 L (74-106) mg/dL Calcium 7.2 L (8.5-10.1) mg/dL JASPER Results - Last 24 hrs: Microbiology 08/01/16 11:50 Clostridium difficile (PCR) - Final Stool / Feces Positive C. Diff Toxin 07/30/16 17:10 Aerobic Blood Culture - Preliminary Blood - Arm, Right NO GROWTH AFTER 1 DAY Anaerobic Blood Culture - Preliminary NO GROWTH AFTER 1 DAY 07/30/16 17:10 Aerobic Blood Culture - Preliminary Blood - Arm, Right NO GROWTH AFTER 1 DAY Anaerobic Blood Culture - Preliminary NO GROWTH AFTER 1 DAY Med Orders - Current: Current Medications Acetaminophen (Tylenol) 650 mg PO Q4H PRN PRN Reason: Pain (Mild 1-3)/fever Last Admin: 07/30/16 14:56 Dose: 650 mg Albuterol (Proventil Neb Soln) 2.5 mg NEB Q4H PRN PRN Reason: Shortness Of Breath/wheezing Allopurinol (Zyloprim) 100 mg PO DAILY [facility] Last Admin: 08/01/16 08:18 Dose: 100 mg Dextrose (Glutose 15) 15 gm PO ONETIME PRN PRN Reason: Hypoglycemia Docusate Sodium (Colace) 100 mg PO BID [facility] Last Admin: 08/01/16 08:17 Dose: Not Given Furosemide (Lasix) 40 mg PO DAILY [facility] Last Admin: 08/01/16 08:17 Dose: 40 mg Gabapentin (Neurontin) 300 mg PO TID [facility] Last Admin: 08/01/16 14:10 Dose: 300 mg Glipizide (Glucotrol) 5 mg PO BIDAC [facility] Last Admin: 07/31/16 17:49 Dose: Not Given Heparin Sodium (Porcine) (Heparin Lock Flush 100 Units/Ml Syringe) 500 units FLUSH ASDIRECTED PRN PRN Reason: IV Use Last Admin: 07/29/16 21:50 Dose: 500 units Levofloxacin/Dextrose 500 mg/ (Premix) 100 mls @ 100 mls/hr IV Q24H [facility] Last Admin: 07/31/16 18:43 Dose: 100 mls/hr Insulin Aspart (Novolog) 0 unit SUBCUT ASDIRECTED LUZ MARINA PRN Reason: Protocol Last Admin: 07/30/16 21:45 Dose: 1 unit Lactobacillus Rhamnosus (Culturelle) 2 cap PO BID [facility] Last Admin: 08/01/16 14:10 Dose: 2 cap Lactulose (Chronulac) 20 gm PO BID [facility] Last Admin: 08/01/16 08:17 Dose: Not Given Levothyroxine Sodium (Levothyroxine) 25 mcg PO ACBREAKFAST [facility] Last Admin: 08/01/16 08:16 Dose: 25 mcg Levothyroxine Sodium (Synthroid) 200 mcg PO ACBREAKFAST [facility] Last Admin: 08/01/16 08:16 Dose: 200 mcg Loperamide HCl (Imodium) 2 mg PO Q4H PRN PRN Reason: Diarrhea Lorazepam (Ativan) 1 mg IV Q6H PRN PRN Reason: Nausea/Vomiting Metformin HCl (Glucophage) 850 mg PO TID@0800,1200,1700 [facility] Last Admin: 08/01/16 12:19 Dose: Not Given Metoprolol Succinate (Toprol Xl) 250 mg PO DAILY [facility] Last Admin: 08/01/16 08:18 Dose: 250 mg Oxycodone HCl (Oxycodone) 0 mg PO Q4H PRN PRN Reason: Pain Oxycodone HCl (Oxycontin) 20 mg PO Q12H [facility] Last Admin: 08/01/16 05:25 Dose: 20 mg Pantoprazole Sodium (Protonix) 40 mg PO BID [facility] Last Admin: 08/01/16 08:17 Dose: 40 mg Potassium Chloride (Klor-Con M20) 20 meq PO BIDMEALS [facility] Last Admin: 08/01/16 08:17 Dose: 20 meq Prochlorperazine Maleate (Compazine) 10 mg PO TID PRN PRN Reason: Nausea/Vomiting Last Admin: 07/30/16 12:50 Dose: 10 mg Sodium Chloride (Saline Flush) 10 ml FLUSH ASDIRECTED PRN PRN Reason: Keep Vein Open Vancomycin HCl (Vancocin 250 Mg/5 Ml Soln) 250 mg PO QID [facility] Last Admin: 08/01/16 14:21 Dose: 250 mg Zolpidem Tartrate (Ambien) 5 mg PO BEDTIME PRN PRN Reason: Sleep Discontinued Medications Ciprofloxacin (Ciprofloxacin Hcl) 500 mg PO BID [facility] Last Admin: 07/30/16 09:44 Dose: 500 mg Dextrose/Water (Dextrose 50% In Water) 50 ml IVPUSH ONETIME ONE Stop: 07/27/16 16:38 Last Admin: 07/27/16 16:41 Dose: 50 ml Dextrose/Water (Dextrose 50% In Water) 25 ml IVPUSH ONETIME ONE Stop: 07/31/16 17:54 Last Admin: 07/31/16 18:01 Dose: 25 ml Dextrose/Water (Dextrose 50% In Water) Confirm Administered Dose 50 ml .ROUTE .STK-MED ONE Stop: 07/31/16 18:00 Last Admin: 07/31/16 18:04 Dose: Not Given Docusate Sodium (Colace) 100 mg PO BID PRN PRN Reason: Constipation Hydromorphone HCl (Dilaudid) 1 mg IVPUSH ONETIME ONE Stop: 07/27/16 19:24 Last Admin: 07/27/16 19:35 Dose: 1 mg Dextrose/Sodium Chloride (Dextrose 5%-1/2 Ns) 1,000 mls @ 200 mls/hr IV ASDIRECTED [facility] Last Admin: 07/27/16 17:25 Dose: 200 mls/hr Ceftriaxone Sodium 1 gm/ (Sodium Chloride) 50 mls @ 100 mls/hr IV Q24H [facility] Last Admin: 07/27/16 19:40 Dose: 100 mls/hr Sodium Chloride (Normal Saline) 1,000 mls @ 125 mls/hr IV ASDIRECTED [facility] Last Admin: 07/28/16 07:25 Dose: 125 mls/hr Ceftriaxone Sodium 1 gm/ (Sodium Chloride) 50 mls @ 100 mls/hr IV Q24H [facility] Last Admin: 07/29/16 20:57 Dose: 100 mls/hr Piperacillin/Tazobactam/ (Dextrose 3.375 gm/ Premix) 50 mls @ 100 mls/hr IV Q6H [facility] Last Admin: 08/01/16 12:18 Dose: 100 mls/hr Sodium Chloride (Normal Saline) 1,000 mls @ 125 mls/hr IV ASDIRECTED [facility] Last Admin: 07/31/16 06:01 Dose: 125 mls/hr Vancomycin HCl 1.4 gm/ Sodium (Chloride) 250 mls @ 165 mls/hr IV Q12H [facility] Last Admin: 08/01/16 08:37 Dose: 165 mls/hr Lidocaine HCl (Xylocaine 2% Jelly) 10 ml MUCMEM ONETIME ONE Stop: 07/27/16 20:42 Last Admin: 07/27/16 21:50 Dose: 10 ml Loperamide HCl (Imodium) Confirm Administered Dose 2 mg .ROUTE .STK-MED ONE Stop: 08/01/16 12:26 Last Admin: 08/01/16 13:09 Dose: Not Given Ondansetron HCl (Zofran) 4 mg IVPUSH ONETIME ONE Stop: 07/27/16 19:25 Last Admin: 07/27/16 19:35 Dose: 4 mg Oxycodone HCl (Oxycontin) 20 mg PO Q12H [facility] Last Admin: 07/30/16 22:03 Dose: 20 mg Pantoprazole Sodium (Protonix Iv) 40 mg IVPUSH Q12H [facility] Last Admin: 07/28/16 21:32 Dose: 40 mg Pantoprazole Sodium (Protonix Iv) Confirm Administered Dose 40 mg .ROUTE .STK -MED ONE Stop: 07/27/16 22:58 Last Admin: 07/27/16 22:59 Dose: Not Given Vancomycin HCl (Vancomycin) 1 gm IV .PHARMACY TO DOSE LUZ MARINA *Q Meaningful Use (DIS) - VTE *Q VTE Criteria *Q: - Stroke *Q Stroke Criteria *Q: - AMI *Q AMI Criteria *Q:
[2016-08-01] MEDS: glipiZIDE 5 MG Tab PO SCH (16:07)
[2016-08-01] MEDS: Levofloxacin/Dextrose 5%-Water 500 MG in Premix Bag 1 BAG IV SCH (18:08)
[2016-08-02] MEDS: oxyCODONE ER 20 MG TAB.ER PO SCH ×2 (05:16→16:47)
[2016-08-02] MEDS: Vancomycin 250 MG/5 ML ML Oral Solution PO SCH ×4 (05:17→21:11)
[2016-08-02] MEDS: Levothyroxine 25 MCG Tab PO SCH (07:28)
[2016-08-02] MEDS: Levothyroxine 100 MCG Tab PO SCH (07:28)
[2016-08-02] MEDS: Potassium Chloride 20 MEQ Tab.ER PO SCH ×2 (07:31→16:47)
[2016-08-02] MEDS: glipiZIDE 5 MG Tab PO SCH (07:33)
[2016-08-02] MEDS: Gabapentin 300 MG Cap PO SCH ×3 (09:05→21:05)
[2016-08-02] MEDS: Docusate Sodium 100 MG Cap PO SCH ×2 (09:05→21:05)
[2016-08-02] MEDS: Pantoprazole 40 MG Tab.CR PO SCH ×2 (09:05→21:06)
[2016-08-02] MEDS: Furosemide 40 MG Tab PO SCH ×2 (09:05→13:15)
[2016-08-02] MEDS: Metoprolol Succinate 50 MG Tab.ER PO SCH (09:05)
[2016-08-02] MEDS: Allopurinol 100 MG Tab PO SCH ×2 (09:06→12:08)
--- NOTE | 2016-08-02 10:14 | PCM.PN ---
- General Info Date of Service: 08/02/16 Functional Status: Reports: pain controlled - Review of Systems General: Reports: Weakness. Denies: Fever, Chills Pulmonary: Reports: no symptoms Cardiovascular: Reports: No Symptoms Gastrointestinal: Reports: No symptoms Systems Review Comment:: This patient has shown improvement in his diarrhea over the past 24 hours, since his stool yesterday that was positive for C. difficile, he's had no further diarrhea. Vital signs have been stable and he has remained afebrile. Respiratory status fairly good continues to have a loose cough productive of on colored sputum. He did have an episode of nausea this morning following taking his morning medications. - Patient Data Vitals - most recent: Last Vital Signs Temp 99.1 F 08/02/16 07:27 Pulse 74 08/02/16 09:05 Resp 18 08/02/16 07:27 BP 133/94 H 08/02/16 09:05 Pulse Ox 91 L 08/02/16 07:27 Weight - most recent: 211 lb 3.245 oz I&O - last 24 hours: Intake & Output 08/01/16 08/02/16 08/02/16 22:59 06:59 14:59 Intake Total 220 240 240 Output Total 700 450 Balance -480 -210 240 Venkat Results last 24 hrs: Microbiology 07/30/16 17:10 Aerobic Blood Culture - Preliminary Blood - Arm, Right NO GROWTH AFTER 2 DAYS Anaerobic Blood Culture - Preliminary NO GROWTH AFTER 2 DAYS 07/30/16 17:10 Aerobic Blood Culture - Preliminary Blood - Arm, Right NO GROWTH AFTER 2 DAYS Anaerobic Blood Culture - Preliminary NO GROWTH AFTER 2 DAYS 08/01/16 11:50 Clostridium difficile (PCR) - Final Stool / Feces Positive C. Diff Toxin Med Orders - Current: Current Medications Acetaminophen (Tylenol) 650 mg PO Q4H PRN PRN Reason: Pain (Mild 1-3)/fever Last Admin: 07/30/16 14:56 Dose: 650 mg Albuterol (Proventil Neb Soln) 2.5 mg NEB Q4H PRN PRN Reason: Shortness Of Breath/wheezing Allopurinol (Zyloprim) 100 mg PO DAILY [facility] Last Admin: 08/02/16 09:06 Dose: 100 mg Dextrose (Glutose 15) 15 gm PO ONETIME PRN PRN Reason: Hypoglycemia Docusate Sodium (Colace) 100 mg PO BID [facility] Last Admin: 08/02/16 09:05 Dose: 100 mg Furosemide (Lasix) 40 mg PO DAILY [facility] Last Admin: 08/02/16 09:05 Dose: 40 mg Gabapentin (Neurontin) 300 mg PO TID [facility] Last Admin: 08/02/16 09:05 Dose: 300 mg Glipizide (Glucotrol) 5 mg PO BIDAC [facility] Last Admin: 08/02/16 07:33 Dose: Not Given Heparin Sodium (Porcine) (Heparin Lock Flush 100 Units/Ml Syringe) 500 units FLUSH ASDIRECTED PRN PRN Reason: IV Use Last Admin: 07/29/16 21:50 Dose: 500 units Levofloxacin/Dextrose 500 mg/ (Premix) 100 mls @ 100 mls/hr IV Q24H [facility] Last Admin: 08/01/16 18:08 Dose: 100 mls/hr Insulin Aspart (Novolog) 0 unit SUBCUT ASDIRECTED [facility] PRN Reason: Protocol Last Admin: 07/30/16 21:45 Dose: 1 unit Lactobacillus Rhamnosus (Culturelle) 2 cap PO BID [facility] Last Admin: 08/01/16 21:35 Dose: 2 cap Levothyroxine Sodium (Levothyroxine) 25 mcg PO ACBREAKFAST [facility] Last Admin: 08/02/16 07:28 Dose: 25 mcg Levothyroxine Sodium (Synthroid) 200 mcg PO ACBREAKFAST [facility] Last Admin: 08/02/16 07:28 Dose: 200 mcg Loperamide HCl (Imodium) 2 mg PO Q4H PRN PRN Reason: Diarrhea Lorazepam (Ativan) 1 mg IV Q6H PRN PRN Reason: Nausea/Vomiting Metformin HCl (Glucophage) 850 mg PO TID@0800,1200,1700 [facility] Last Admin: 08/02/16 07:33 Dose: Not Given Metoprolol Succinate (Toprol Xl) 250 mg PO DAILY [facility] Last Admin: 08/02/16 09:05 Dose: 250 mg Oxycodone HCl (Oxycodone) 0 mg PO Q4H PRN PRN Reason: Pain Oxycodone HCl (Oxycontin) 20 mg PO Q12H [facility] Last Admin: 08/02/16 05:16 Dose: 20 mg Pantoprazole Sodium (Protonix) 40 mg PO BID [facility] Last Admin: 08/02/16 09:05 Dose: 40 mg Potassium Chloride (Klor-Con M20) 20 meq PO BIDMEALS [facility] Last Admin: 08/02/16 07:31 Dose: 20 meq Prochlorperazine Maleate (Compazine) 10 mg PO TID PRN PRN Reason: Nausea/Vomiting Last Admin: 07/30/16 12:50 Dose: 10 mg Sodium Chloride (Saline Flush) 10 ml FLUSH ASDIRECTED PRN PRN Reason: Keep Vein Open Vancomycin HCl (Vancocin 250 Mg/5 Ml Soln) 250 mg PO QID [facility] Last Admin: 08/02/16 05:17 Dose: 250 mg Zolpidem Tartrate (Ambien) 5 mg PO BEDTIME PRN PRN Reason: Sleep Discontinued Medications Ciprofloxacin (Ciprofloxacin Hcl) 500 mg PO BID [facility] Last Admin: 07/30/16 09:44 Dose: 500 mg Dextrose/Water (Dextrose 50% In Water) 50 ml IVPUSH ONETIME ONE Stop: 07/27/16 16:38 Last Admin: 07/27/16 16:41 Dose: 50 ml Dextrose/Water (Dextrose 50% In Water) 25 ml IVPUSH ONETIME ONE Stop: 07/31/16 17:54 Last Admin: 07/31/16 18:01 Dose: 25 ml Dextrose/Water (Dextrose 50% In Water) Confirm Administered Dose 50 ml .ROUTE .STK-MED ONE Stop: 07/31/16 18:00 Last Admin: 07/31/16 18:04 Dose: Not Given Docusate Sodium (Colace) 100 mg PO BID PRN PRN Reason: Constipation Hydromorphone HCl (Dilaudid) 1 mg IVPUSH ONETIME ONE Stop: 07/27/16 19:24 Last Admin: 07/27/16 19:35 Dose: 1 mg Dextrose/Sodium Chloride (Dextrose 5%-1/2 Ns) 1,000 mls @ 200 mls/hr IV ASDIRECTED [facility] Last Admin: 07/27/16 17:25 Dose: 200 mls/hr Ceftriaxone Sodium 1 gm/ (Sodium Chloride) 50 mls @ 100 mls/hr IV Q24H [facility] Last Admin: 07/27/16 19:40 Dose: 100 mls/hr Sodium Chloride (Normal Saline) 1,000 mls @ 125 mls/hr IV ASDIRECTED [facility] Last Admin: 07/28/16 07:25 Dose: 125 mls/hr Ceftriaxone Sodium 1 gm/ (Sodium Chloride) 50 mls @ 100 mls/hr IV Q24H [facility] Last Admin: 07/29/16 20:57 Dose: 100 mls/hr Piperacillin/Tazobactam/ (Dextrose 3.375 gm/ Premix) 50 mls @ 100 mls/hr IV Q6H [facility] Last Admin: 08/01/16 12:18 Dose: 100 mls/hr Sodium Chloride (Normal Saline) 1,000 mls @ 125 mls/hr IV ASDIRECTED [facility] Last Admin: 07/31/16 06:01 Dose: 125 mls/hr Vancomycin HCl 1.4 gm/ Sodium (Chloride) 250 mls @ 165 mls/hr IV Q12H [facility] Last Admin: 08/01/16 08:37 Dose: 165 mls/hr Lactulose (Chronulac) 20 gm PO BID [facility] Last Admin: 08/01/16 08:17 Dose: Not Given Lidocaine HCl (Xylocaine 2% Jelly) 10 ml MUCMEM ONETIME ONE Stop: 07/27/16 20:42 Last Admin: 07/27/16 21:50 Dose: 10 ml Loperamide HCl (Imodium) Confirm Administered Dose 2 mg .ROUTE .STK-MED ONE Stop: 08/01/16 12:26 Last Admin: 08/01/16 13:09 Dose: Not Given Ondansetron HCl (Zofran) 4 mg IVPUSH ONETIME ONE Stop: 07/27/16 19:25 Last Admin: 07/27/16 19:35 Dose: 4 mg Oxycodone HCl (Oxycontin) 20 mg PO Q12H [facility] Last Admin: 07/30/16 22:03 Dose: 20 mg Pantoprazole Sodium (Protonix Iv) 40 mg IVPUSH Q12H [facility] Last Admin: 07/28/16 21:32 Dose: 40 mg Pantoprazole Sodium (Protonix Iv) Confirm Administered Dose 40 mg .ROUTE .STK -MED ONE Stop: 07/27/16 22:58 Last Admin: 07/27/16 22:59 Dose: Not Given Vancomycin HCl (Vancomycin) 1 gm IV .PHARMACY TO DOSE LUZ MARINA - Exam Quality Assessment: supplemental oxygen, urine catheter, DVT prophylaxis General: alert, oriented, cooperative, no acute distress Lungs: Clear to auscultation, Normal respiratory effort Cardiovascular: Regular Rate, Regular Rhythm, No Murmurs Extremities: no edema Skin: warm, dry, intact - Problem List & Annotations (1) Pneumonia SNOMED Code(s): 028605873 Code(s): J18.9 - PNEUMONIA, UNSPECIFIED ORGANISM Status: Acute Current Visit: Yes (2) Clostridium difficile colitis SNOMED Code(s): 529172146 Code(s): A04.7 - ENTEROCOLITIS DUE TO CLOSTRIDIUM DIFFICILE Status: Acute Current Visit: Yes (3) Diabetes mellitus type 2 with complications SNOMED Code(s): 69607082, 33860651143066 Code(s): E11.8 - TYPE 2 DIABETES MELLITUS WITH UNSPECIFIED COMPLICATIONS Status: Acute Priority: High Current Visit: Yes Qualifiers: Diabetes mellitus marine oil terminal superintendent insulin use: without marine oil terminal superintendent use Qualified Code(s): E11.8 - Type 2 diabetes mellitus with unspecified complications (4) Hypoglycemia SNOMED Code(s): 900099295 Code(s): E16.2 - HYPOGLYCEMIA, UNSPECIFIED Status: Acute Priority: High Current Visit: Yes (5) UTI (urinary tract infection) SNOMED Code(s): 65848737 Code(s): N39.0 - URINARY TRACT INFECTION, SITE NOT SPECIFIED Status: Acute Priority: High Current Visit: Yes Qualifiers: Urinary tract infection type: catheter-associated UTI Indwelling urinary catheter type: indwelling urethral catheter Encounter type: initial encounter Qualified Code(s): T83.511A - Infection and inflammatory reaction due to indwelling urethral catheter, initial encounter; N39.0 - Urinary tract infection , site not specified (6) Dehydration SNOMED Code(s): 66432964 Code(s): E86.0 - DEHYDRATION Status: Acute Current Visit: No - Problem List Review Problem List Initiated/Reviewed/Updated: Yes - My Orders Last 24 Hours: My Active Orders 08/01/16 12:52 Loperamide [Imodium] 2 mg PO Q4H PRN 08/01/16 13:00 Lactobacillus Rhamnosus GG [Culturelle] 2 cap PO BID 08/01/16 13:15 Vancomycin [Vancocin 250 MG/5 ML Soln] 250 mg PO QID 08/01/16 14:00 Ready for Discharge [RC] PER UNIT ROUTINE 08/02/16 08:17 CLOSTRIDIUM DIFFICILE BY PCR [] Stat - Plan Plan:: ASSESSMENT / PLAN BILATERAL PNEUMONIA-stable from a respiratory standpoint, remains on supplemental oxygen. Vital signs have been stable and he has remained afebrile -Cultures negative thus far -Continue IV levofloxacin C. DIFFICILE COLITIS-diarrhea has resolved, he did have an episode of emesis this morning -Vancomycin 250 mg by mouth 4 times a day Urinary Tract infection-history of chronic indwelling catheter, secondary to prostate cancer-culture has not grown out Proteus -Current IV antibiotic therapy should provide adequate coverage -casillas cath changed -Saline lock IV DELIRIUM-secondary to urinary tract infection, now resolved Diabetes Type 2, complication hypoglycemia-glucose levels have been low again -monitor blood glucose 4 times a day -Hold metformin and glipizide -POC blood glucose -Sliding scale NovoLog Maintenance issues -Nutrition: consistent carb diet -Casillas catheter ;' changed in ER -DVT: scd CODE STATUS: DNR Admission status: Admit to ICU Admission justification. This patient will be admitted for inpatient services and is medically appropriate meeting medical necessity for inpatient admission as outlined in my documentation. I reasonably expect the patient will require inpatient services that span. Time over 2 midnights. I reasonably expect this patient to be discharged or transferred within 96 hours after admission to the critical access hospital. Disposition; plan for alf placement as soon as he has another stool that is negative for C. difficile. Primary care provider: Dr. Dejesus Hospitalist; Dominique
[2016-08-02] MEDS: Lactobacillus Rhamnosus GG (Probiotic) Cap PO SCH ×3 (10:34→21:05)
[2016-08-02] MEDS: Levofloxacin/Dextrose 5%-Water 500 MG in Premix Bag 1 BAG IV SCH (17:41)
[2016-08-02] MEDS: Insulin Aspart 100 Units/ML 3 ML Pen SUBCUT SCH (21:52)
[2016-08-03] MEDS: Vancomycin 250 MG/5 ML ML Oral Solution PO SCH ×2 (05:28→10:14)
[2016-08-03] MEDS: oxyCODONE ER 20 MG TAB.ER PO SCH (05:28)
[2016-08-03] MEDS: Levothyroxine 100 MCG Tab PO SCH (07:32)
[2016-08-03] MEDS: Levothyroxine 25 MCG Tab PO SCH (07:32)
[2016-08-03 07:35] VITALS: BP 129/80
[2016-08-03] MEDS: Potassium Chloride 20 MEQ Tab.ER PO SCH (09:46)
[2016-08-03] MEDS: Docusate Sodium 100 MG Cap PO SCH (09:46)
[2016-08-03] MEDS: Lactobacillus Rhamnosus GG (Probiotic) Cap PO SCH (09:47)
[2016-08-03] MEDS: Gabapentin 300 MG Cap PO SCH (09:47)
[2016-08-03] MEDS: Furosemide 40 MG Tab PO SCH (09:47)
[2016-08-03] MEDS: Pantoprazole 40 MG Tab.CR PO SCH (09:48)
[2016-08-03] MEDS: Metoprolol Succinate 50 MG Tab.ER PO SCH (09:48)
[2016-08-03] MEDS: Allopurinol 100 MG Tab PO SCH (09:49)
== END 2016-08-03 12:07 | DRG 698 ==
LOC: JP.ED 14:49 → JP.MS 21:08
PROVIDERS: ADMIT Internal Medicine; ATTEND Hospitalist
DX: T83.511A Infection and inflammatory reaction due to indwelling urethral catheter, initial encounter (principal); J18.9 Pneumonia, unspecified organism; C79.9 Secondary malignant neoplasm of unspecified site; A04.7 Enterocolitis due to Clostridium difficile; N13.8 Other obstructive and reflux uropathy; N39.0 Urinary tract infection, site not specified; E86.0 Dehydration; Z66 Do not resuscitate; I12.9 Hypertensive chronic kidney disease with stage 1 through stage 4 chronic kidney disease, or unspecified chronic kidney disease; N18.3 Chronic kidney disease, stage 3 (moderate); E11.649 Type 2 diabetes mellitus with hypoglycemia without coma; E03.9 Hypothyroidism, unspecified; E11.22 Type 2 diabetes mellitus with diabetic chronic kidney disease; Z79.84 Long term (current) use of oral hypoglycemic drugs; Y95 Nosocomial condition; R41.0 Disorientation, unspecified; Z85.038 Personal history of other malignant neoplasm of large intestine; Z85.830 Personal history of malignant neoplasm of bone; C61 Malignant neoplasm of prostate; Z92.21 Personal history of antineoplastic chemotherapy; Z92.3 Personal history of irradiation; M19.90 Unspecified osteoarthritis, unspecified site; H54.7 Unspecified visual loss; H91.90 Unspecified hearing loss, unspecified ear; H54.42 Blindness, left eye, normal vision right eye; Z91.81 History of falling; B96.4 Proteus (mirabilis) (morganii) as the cause of diseases classified elsewhere; Z79.2 Long term (current) use of antibiotics
CPT/HCPCS: 36415; 71020; 71020-26; 80048; 80053; 81001; 82150; 82272; 82962; 83605; 83690; 83735; 85025; 87040; 87086; 87088; 87186; 87493; 96361; 96365; 96375; 97110-GP; 97162-GP; 97165-GO; 97530-GP; 99285; 99285-25; A9270-GY; C9113; J0696; J1170; J1642; J1956; J2405; J2543; J3370; J7040; J7050

== ENCOUNTER 2016-08-13 18:29 | Emergency (ER) | payer MEDICARE ==
[2016-08-13 18:47] VITALS: BP 146/114
[2016-08-13] MEDS ORDERED: Nystatin Topical Powder 15 GM Bottle TOP ONE (18:57)
--- NOTE | 2016-08-13 19:59 | EDM.PDOC ---
ED HPI GENERAL MEDICAL PROBLEM - General Chief Complaint: Genitourinary Problem Stated Complaint: CATHETER ISSUES Time Seen by Provider: 08/13/16 18:45 Source of Information: Reports: Patient History Limitations: Reports: No Limitations - History of Present Illness INITIAL COMMENTS - FREE TEXT/NARRATIVE: [facility]. He has had problems with his cath for 2 days. It has not been drainging right. He states today it has been leaking around the cath and making a mess. Onset: Gradual Duration: Day(s):, Getting Worse Location: Reports: Other (cath leaking around the tube. ) Associated Symptoms: Reports: Other (pt has a history of ca of the prostate. ) - Related Data Allergies Allergy/AdvReac Type Severity Reaction Status Date / Time No Known Allergies Allergy Verified 07/27/16 15:13 Home Meds: Home Meds Levothyroxine 225 mcg PO DAILY 01/22/13 [History] Prochlorperazine [Compazine] 10 mg PO TID PRN 08/25/13 [History] oxyCODONE ER [OxyCONTIN] 20 mg PO Q12HR 08/25/13 [History] Furosemide 40 mg PO DAILY 12/18/14 [History] Lidocaine 2% [Xylocaine 2% Jelly] 1 applic TOP ASDIRECTED PRN 12/18/14 [History] Potassium Chloride [Klor-Con M20] 20 meq PO BIDMEALS 12/18/14 [History] oxyCODONE HCl [Roxicodone] 5 - 10 mg PO Q4H PRN 12/18/14 [History] Dexamethasone 8 mg PO ASDIRECTED 02/04/16 [History] Gabapentin [Neurontin] 300 mg PO TID 02/04/16 [History] Metoprolol Succinate [Toprol XL] 250 mg PO DAILY 03/20/16 [History] Allopurinol [Zyloprim] 100 mg PO DAILY 03/24/16 [History] Levofloxacin [Levaquin] 500 mg PO Q24H #4 tablet 08/01/16 [Rx] Vancomycin [Vancocin 250 MG/5 ML Soln] 250 mg PO QID #260 ml 08/01/16 [Rx] metFORMIN [Glucophage XR] 500 mg PO BIDMEALS #60 tab.er 08/01/16 [Rx] Past Medical History HEENT History: Reports: Cataract, Hard of Hearing, Impaired Vision Other HEENT History: blind left eye Cardiovascular History: Reports: Arrhythmia, Hypertension, Other (See Below) Other Cardiovascular History: A flutter Respiratory History: Reports: Other (See Below) Other Respiratory History: lesions in lungs, on PO chemotherapy Gastrointestinal History: Reports: Other (See Below) Other Gastrointestinal History: colon cancer Genitourinary History: Reports: Prostate Disorder, Renal Disease Other Genitourinary History: Indwelling casillas for approx 2 year. stage 3 CKD Musculoskeletal History: Reports: Arthritis, Other (See Below) Other Musculoskeletal History: generalized weakness Neurological History: Reports: Vertigo Endocrine/Metabolic History: Reports: Diabetes, Type II, Hypothyroidism Other Endocrine/Metabolic History: hypothyroidism Hematologic History: Reports: Blood Transfusion(s) Immunologic History: Reports: Immunosuppression Oncologic (Cancer) History: Reports: Bone, Colon, Metastatic, Prostate, Other ( See Below) Other Oncologic History: radiation for prostate ca, currently on PO meds for lung lesion Other Dermatologic History: rash on left shoulder-has had for approx 2 days - Infectious Disease History Infectious Disease History: Reports: Chicken Pox, Measles, Mumps - Past Surgical History HEENT Surgical History: Reports: Oral Surgery GI Surgical History: Reports: Cholecystectomy, Colonoscopy, Other (See Below) Oncologic Surgical History: Reports: Other (See Below) Social & Family History - Family History Family Medical History: Noncontributory - Tobacco Use Smoking Status *Q: Never Smoker Second Hand Smoke Exposure: No - Caffeine Use Caffeine Use: Reports: Coffee - Alcohol Use Days Per Week of Alcohol Use: 0 - Recreational Drug Use Recreational Drug Use: No - Living Situation & Occupation Living situation: Reports: Single Occupation: Disabled ED ROS GENERAL - Review of Systems Review Of Systems: See Below Constitutional: Reports: No Symptoms HEENT: Reports: No Symptoms Respiratory: Reports: No Symptoms Cardiovascular: Reports: No Symptoms Endocrine: Reports: No Symptoms GI/Abdominal: Reports: No Symptoms : Reports: Other (pt has a urinary cath which has been plugged and is leaking around the tube. ) Musculoskeletal: Reports: No Symptoms Skin: Reports: Other ( alot of redness in the groin. ) ED EXAM, RENAL/ - Physical Exam Exam: See Below Text/Narrative:: pt arrived with a problem with his cath. It was plugged on and off today. He has been leaking around the tube. Exam Limited By: No Limitations General Appearance: Alert, Mild Distress Ears: Normal External Exam Nose: Normal Inspection Throat/Mouth: Normal Inspection Head: Atraumatic Neck: Normal Inspection Respiratory/Chest: No Respiratory Distress Cardiovascular: Normal Peripheral Pulses GI/Abdominal: Other (pt had the cath removed and a new one was placed. He had a urine culture set up. He is just finishing his course of vancomycin for C Diff. ) (Male) Exam: Other (pt has marked scrotal redness, looking like a yeast infection. ) Rectal (Males) Exam: Deferred Back Exam: Normal Inspection Extremities: Normal Inspection Neurological: Alert, Oriented, Normal Cognition Course - Vital Signs Last Recorded V/S: Last Vital Signs Temp 35.7 C 08/13/16 18:45 Pulse 103 H 08/13/16 18:45 Resp 16 08/13/16 18:45 BP 146/114 H 08/13/16 18:45 Pulse Ox 95 08/13/16 18:45 - Orders/Labs/Meds Orders: Active Orders 24 hr Category Date Time Status CULTURE URINE [RM] Stat Lab 08/13/16 19:53 Uncollected UA W/MICROSCOPIC [URIN] Urgent Lab 08/13/16 19:06 Uncollected Labs: Laboratory Tests 08/13/16 08/13/16 Range/Units 19:05 19:05 WBC 5.6 (4.5-11.0) K/uL RBC 4.25 L (4.30-5.90) M/uL Hgb 11.9 L (12.0-15.0) g/dL Hct 37.8 L (40.0-54.0) % MCV 89 (80-98) fL MCH 28 (27-31) pg MCHC 32 (32-36) % Plt Count 377 (150-400) K/uL Neut % (Auto) 63 (36-66) % Lymph % (Auto) 17 L (24-44) % Knox % (Auto) 15 H (2-6) % Eos % (Auto) 5 H (2-4) % Baso % (Auto) 1 (0-1) % Sodium 136 L (140-148) mmol/L Potassium 4.4 (3.6-5.2) mmol/L Chloride 101 (100-108) mmol/L Carbon Dioxide 24 (21-32) mmol/L Anion Gap 15.4 H (5.0-14.0) mmol/L BUN 12 (7-18) mg/dL Creatinine 1.4 H (0.8-1.3) mg/dL Est Cr Clr Drug Dosing 48.56 mL/min Estimated GFR (MDRD) 49 L (>60) Glucose 60 L (74-106) mg/dL Calcium 8.2 L (8.5-10.1) mg/dL Total Bilirubin 0.4 (0.2-1.0) mg/dL AST 69 H (15-37) U/L ALT 78 (12-78) U/L Alkaline Phosphatase 96 (46-116) U/L Total Protein 6.7 (6.4-8.2) g/dL Albumin 2.6 L (3.4-5.0) g/dL Globulin 4.1 H (2.3-3.5) g/dL Albumin/Globulin Ratio 0.6 L (1.2-2.2) Meds: Medications Discontinued Medications Generic Name Dose Route Start Last Admin Trade Name Freq PRN Reason Stop Dose Admin Nystatin 1 gm 08/13/16 18:57 08/13/16 19:30 Nystop TOP 08/13/16 18:58 1 gm BID ONE Administration - Re-Assessments/Exams Free Text/Narrative Re-Assessment/Exam: 08/13/16 20:17 casillas was changed and urind id look cloudy. This was cultured No antibiotics will be started until culture is back because of the recent. clost diff. His bs was found to be 60. He was fed supper. Departure - Departure Time of Disposition: 20:20 Disposition: Home, Self-Care 01 Condition: fair Clinical Impression: Casillas catheter problem, Clostridium difficile infection - Discharge Information Forms: ED Department Discharge Care Plan Goals: push fluids, will notify of urine culture. Use the nystatin powder in the groin- - will send this home with him. - My Orders Last 24 Hours: My Active Orders 08/13/16 19:06 UA W/MICROSCOPIC [URIN] Urgent 08/13/16 19:53 CULTURE URINE [RM] Stat - Assessment/Plan Last 24 Hours: My Active Orders 08/13/16 19:06 UA W/MICROSCOPIC [URIN] Urgent 08/13/16 19:53 CULTURE URINE [RM] Stat
== END 2016-08-13 20:41 | disposition home or self-care (01) ==
LOC: JP.ED 18:29
DX: T83.89XA Other specified complication of genitourinary prosthetic devices, implants and grafts, initial encounter (principal); B96.89 Other specified bacterial agents as the cause of diseases classified elsewhere; I12.9 Hypertensive chronic kidney disease with stage 1 through stage 4 chronic kidney disease, or unspecified chronic kidney disease; N18.3 Chronic kidney disease, stage 3 (moderate); Z79.899 Other long term (current) drug therapy; E03.9 Hypothyroidism, unspecified; E11.9 Type 2 diabetes mellitus without complications; Z98.890 Other specified postprocedural states
CPT/HCPCS: 36415; 51702; 80053; 81001; 85025; 87086; 99283; 99284; A9270

== ENCOUNTER 2016-11-30 13:08 | Inpatient (IN) | payer OTHER ==
--- NOTE | 2016-11-30 13:52 | EDM.PDOC ---
ED HPI GENERAL MEDICAL PROBLEM - General Chief Complaint: Upper Extremity Injury/Pain Stated Complaint: FELL AT HOME AND INJURED ARM Time Seen by Provider: 11/30/16 13:35 Source of Information: Reports: Patient, Provider History Limitations: Reports: No Limitations - History of Present Illness INITIAL COMMENTS - FREE TEXT/NARRATIVE: 76-year-old male who is on hospice care for metastatic prostate cancer has recently lost the ability to walk because of weakness, last night he rolled over and caught his arm in the railing of the bed and got stuck for several hours. When he was finally found he was having significant right upper arm pain. He was brought in by hospice, they are concerned he may need a respite hospitalization. He has no shortness of breath or fever. Onset: Unknown/Unsure (Patient sustained the arm injury overnight) Location: Reports: Upper Extremity, Right Severity: Moderate (Unable to move his arm) Associated Symptoms: Reports: Fever/Chills (Patient has a fever and has generalized weakness) Pelvic Pain Score (Numeric/FACES): 2 - Related Data Allergies Allergy/AdvReac Type Severity Reaction Status Date / Time No Known Allergies Allergy Verified 11/30/16 16:38 Home Meds: Home Meds Levothyroxine 225 mcg PO DAILY 01/22/13 [History] Prochlorperazine [Compazine] 10 mg PO TID PRN 08/25/13 [History] oxyCODONE ER [OxyCONTIN] 20 mg PO Q12HR 08/25/13 [History] Furosemide 40 mg PO DAILY 12/18/14 [History] Lidocaine 2% [Xylocaine 2% Jelly] 1 applic TOP ASDIRECTED PRN 12/18/14 [History] Potassium Chloride [Klor-Con M20] 20 meq PO BIDMEALS 12/18/14 [History] oxyCODONE HCl [Roxicodone] 5 - 10 mg PO Q4H PRN 12/18/14 [History] Gabapentin [Neurontin] 300 mg PO TID 02/04/16 [History] Metoprolol Succinate [Toprol XL] 50 mg PO DAILY 03/20/16 [History] Allopurinol [Zyloprim] 100 mg PO DAILY 03/24/16 [History] atorvaSTATin [Lipitor] 40 mg PO BEDTIME 11/30/16 [History] metFORMIN [Glucophage XR] 850 mg PO BIDMEALS 11/30/16 [History] predniSONE [Prednisone] 2.5 mg PO DAILY 11/30/16 [History] Past Medical History HEENT History: Reports: Cataract, Hard of Hearing, Impaired Vision Other HEENT History: blind left eye Cardiovascular History: Reports: Arrhythmia, Hypertension, Other (See Below) Other Cardiovascular History: A flutter Respiratory History: Reports: Other (See Below) Other Respiratory History: lesions in lungs, on PO chemotherapy Gastrointestinal History: Reports: Other (See Below) Other Gastrointestinal History: colon cancer Genitourinary History: Reports: Prostate Disorder, Renal Disease Other Genitourinary History: Indwelling casillas for approx 2 year. stage 3 CKD Musculoskeletal History: Reports: Arthritis, Other (See Below) Other Musculoskeletal History: generalized weakness Neurological History: Reports: Vertigo Endocrine/Metabolic History: Reports: Diabetes, Type II, Hypothyroidism Other Endocrine/Metabolic History: hypothyroidism Hematologic History: Reports: Blood Transfusion(s) Immunologic History: Reports: Immunosuppression Oncologic (Cancer) History: Reports: Bone, Colon, Metastatic, Prostate, Other ( See Below) Other Oncologic History: radiation for prostate ca, currently on PO meds for lung lesion Other Dermatologic History: rash on left shoulder-has had for approx 2 days - Infectious Disease History Infectious Disease History: Reports: C-Difficile, Chicken Pox, Measles, Mumps - Past Surgical History HEENT Surgical History: Reports: Oral Surgery GI Surgical History: Reports: Cholecystectomy, Colonoscopy, Other (See Below) Oncologic Surgical History: Reports: Other (See Below) Social & Family History - Family History Family Medical History: Noncontributory - Tobacco Use Smoking Status *Q: Never Smoker Second Hand Smoke Exposure: No - Caffeine Use Caffeine Use: Reports: Coffee - Alcohol Use Days Per Week of Alcohol Use: 0 - Recreational Drug Use Recreational Drug Use: No - Living Situation & Occupation Living situation: Reports: Single Occupation: Disabled Review of Systems - Review of Systems Review Of Systems: See Below Constitutional: Reports: Fever Respiratory: Denies: Shortness of Breath Genitourinary: Reports: Other (Indwelling chronic catheter) Skin: Reports: Pallor, Bruising (Scattered bruises) ED EXAM, GENERAL - Physical Exam Exam: See Below Exam Limited By: No Limitations General Appearance: Alert, No Apparent Distress Eye Exam: Bilateral Eye: Conjunctival Injection (A chronic condition) Respiratory/Chest: No Respiratory Distress GI/Abdominal: Non-Tender Extremities: Other (Exam is otherwise limited to the right arm. He reacts with tenderness to passive range of motion and localizes the tenderness to the upper arm. There is no deformity but he is tender to palpation over the upper humerus , there is no crepitus over the painful area and he has very poor distal circulation to all extremities) Course - Vital Signs Last Recorded V/S: Last Vital Signs Temp 100.7 F H 11/30/16 16:41 Pulse 45 L 11/30/16 16:41 Resp 16 11/30/16 16:41 BP 160/83 H 11/30/16 16:41 Pulse Ox 98 11/30/16 16:41 - Orders/Labs/Meds Orders: Active Orders 24 hr Category Date Time Status Humerus Rt [CR] Stat Exams 11/30/16 13:45 Taken Medication Orders Allopurinol (Zyloprim) 100 mg PO DAILY [facility] Gabapentin (Neurontin) 300 mg PO TID [facility] Levothyroxine Sodium (Levothyroxine) 225 mcg PO DAILY [facility] Metoprolol Succinate (Toprol Xl) 50 mg PO DAILY [facility] Oxycodone HCl (Oxycodone) 5 - 10 mg PO Q4H PRN PRN Reason: Pain Oxycodone HCl (Oxycontin) 20 mg PO Q12H [facility] Last Admin: 11/30/16 17:48 Dose: 20 mg Prednisone (Prednisone) 2.5 mg PO DAILY [facility] Prochlorperazine Maleate (Compazine) 10 mg PO TID PRN PRN Reason: Nausea/Vomiting Labs: Laboratory Tests 11/30/16 11/30/16 Range/Units 13:45 13:45 WBC 14.5 H (4.5-11.0) K/uL RBC 4.40 (4.30-5.90) M/uL Hgb 12.5 (12.0-15.0) g/dL Hct 37.0 L (40.0-54.0) % MCV 84 (80-98) fL MCH 28 (27-31) pg MCHC 34 (32-36) % Plt Count 82 L (150-400) K/uL Neut % (Auto) 90 H (36-66) % Lymph % (Auto) 3 L (24-44) % [place] % (Auto) 8 H (2-6) % Eos % (Auto) 0 L (2-4) % Baso % (Auto) 0 (0-1) % Sodium 133 L (140-148) mmol/L Potassium 4.7 (3.6-5.2) mmol/L Chloride 94 L (100-108) mmol/L Carbon Dioxide 25 (21-32) mmol/L Anion Gap 18.7 H (5.0-14.0) mmol/L BUN 30 H D (7-18) mg/dL Creatinine 2.4 H D (0.8-1.3) mg/dL Est Cr Clr Drug Dosing 28.21 mL/min Estimated GFR (MDRD) 27 L (>60) Glucose 68 L (74-106) mg/dL Calcium 8.6 (8.5-10.1) mg/dL Creatine Kinase 67567 H (39-308) U/L Meds: Medications Generic Name Dose Route Start Last Admin Trade Name Freq PRN Reason Stop Dose Admin Allopurinol 100 mg 12/01/16 09:00 Zyloprim PO DAILY [facility] Gabapentin 300 mg 11/30/16 21:00 Neurontin PO TID [facility] Levothyroxine Sodium 225 mcg 12/01/16 09:00 Levothyroxine PO DAILY [facility] Metoprolol Succinate 50 mg 12/01/16 09:00 Toprol Xl PO DAILY [facility] Oxycodone HCl 5 - 10 mg 11/30/16 16:36 Oxycodone PO Q4H PRN Pain Oxycodone HCl 20 mg 11/30/16 17:00 11/30/16 17:48 Oxycontin PO 20 mg Q12H [facility] Administration Prednisone 2.5 mg 12/01/16 09:00 Prednisone PO DAILY [facility] Prochlorperazine Maleate 10 mg 11/30/16 16:36 Compazine PO TID PRN Nausea/Vomiting Discontinued Medications Generic Name Dose Route Start Last Admin Trade Name Freq PRN Reason Stop Dose Admin Oxycodone HCl 20 mg 11/30/16 21:00 Oxycontin PO Q12H [facility] - Re-Assessments/Exams Free Text/Narrative Re-Assessment/Exam: 11/30/16 15:48 An x-ray of the humerus was obtained and showed no fracture. Some laboratory work was done to assess rhabdomyolysis however the patient is hospice and will be admitted for comfort cares only with no treatment of any other medical condition. He was admitted by the hospitalist service for respite care. 11/30/16 15:49 Creatinine kinase returned almost 21,000 with a creatinine of 2.4. Patient will be at high risk of renal failure and will be just treated symptomatically over the next several days. Departure - Departure Time of Disposition: 16:11 Disposition: Admitted As Inpatient 67 Condition: Serious Clinical Impression: Prostate cancer metastatic to multiple sites Traumatic rhabdomyolysis Qualifiers: Encounter type: initial encounter Qualified Code(s): T79.6XXA - Traumatic ischemia of muscle, initial encounter - Discharge Information - My Orders Last 24 Hours: My Active Orders 11/30/16 13:45 Humerus Rt [CR] Stat - Assessment/Plan Last 24 Hours: My Active Orders 11/30/16 13:45 Humerus Rt [CR] Stat
[2016-11-30] MEDS ORDERED: oxyCODONE 5 MG Tab PO PRN (16:36)
[2016-11-30] MEDS ORDERED: Prochlorperazine 10 MG Tab PO PRN (16:36)
[2016-11-30] MEDS: oxyCODONE ER 20 MG TAB.ER PO SCH (17:48)
[2016-11-30] MEDS ORDERED: oxyCODONE ER 20 MG TAB.ER PO SCH (21:00)
[2016-11-30] MEDS: Gabapentin 300 MG Cap PO SCH (21:14)
[2016-12-01] MEDS: oxyCODONE ER 20 MG TAB.ER PO SCH ×3 (05:21→17:58)
[2016-12-01] MEDS ORDERED: Metoprolol Succinate 50 MG Tab.ER PO SCH (09:00)
[2016-12-01] MEDS: predniSONE 5 MG Tab PO SCH (09:25)
[2016-12-01] MEDS: Gabapentin 300 MG Cap PO SCH ×3 (09:25→21:08)
[2016-12-01] MEDS: Allopurinol 100 MG Tab PO SCH (09:25)
[2016-12-01] MEDS: Levothyroxine 75 MCG Tab PO SCH (09:25)
[2016-12-01] MEDS ORDERED: Dimethicone 20%/Zinc Oxide 25% 56 GM Spray Bottle TOP PRN (13:07)
[2016-12-01] MEDS ORDERED: LORazepam ORAL Concentrate 1MG/0.5ML U/D PO PRN (18:03)
[2016-12-01] MEDS ORDERED: Acetaminophen 650 MG Supp RECTAL PRN ×3 (18:03→18:10)
[2016-12-01] MEDS ORDERED: Morphine 10 MG/0.5 ML Oral Syringe PO PRN (18:05)
[2016-12-01] MEDS: Morphine 10 MG/0.5 ML Oral Syringe SL PRN ×2 (20:21→21:46)
[2016-12-02] MEDS: Morphine 10 MG/0.5 ML Oral Syringe SL PRN ×4 (00:01→23:26)
[2016-12-02] MEDS: oxyCODONE ER 20 MG TAB.ER PO SCH ×2 (04:23→16:40)
--- NOTE | 2016-12-02 09:03 | CR ---
Humerus Rt HISTORY: Injury COMPARISON: None FINDINGS: No fracture or bony destructive process seen in the right humerus. No dislocation of the sh oulder.
[2016-12-02] MEDS: Levothyroxine 75 MCG Tab PO SCH (09:46)
[2016-12-02] MEDS: Allopurinol 100 MG Tab PO SCH (09:46)
[2016-12-02] MEDS: Gabapentin 300 MG Cap PO SCH ×3 (09:46→20:44)
[2016-12-02] MEDS: predniSONE 5 MG Tab PO SCH (09:46)
[2016-12-02] MEDS ORDERED: Lidocaine 2% Jelly 10 ML Urojet MUCMEM ONE (14:31)
[2016-12-03] MEDS: Morphine 10 MG/0.5 ML Oral Syringe SL PRN (01:15)
[2016-12-03] MEDS: oxyCODONE ER 20 MG TAB.ER PO SCH (05:49)
[2016-12-03] MEDS: Levothyroxine 75 MCG Tab PO SCH (09:18)
[2016-12-03] MEDS: predniSONE 5 MG Tab PO SCH (09:19)
[2016-12-03] MEDS: Gabapentin 300 MG Cap PO SCH (09:19)
[2016-12-03] MEDS: Allopurinol 100 MG Tab PO SCH (09:23)
[2016-12-03 10:27] VITALS: BP 71/49
== END 2016-12-03 13:10 | disposition still patient (30) | DRG 565 ==
LOC: JP.ED 13:08 → JP.MS 15:03
PROVIDERS: ADMIT Internal Medicine; ATTEND Hospitalist
DX: T79.6XXA Traumatic ischemia of muscle, initial encounter (principal); C79.9 Secondary malignant neoplasm of unspecified site; W23.0XXA Caught, crushed, jammed, or pinched between moving objects, initial encounter; Z51.5 Encounter for palliative care; R53.1 Weakness; C61 Malignant neoplasm of prostate; Z75.5 Holiday relief care; I12.9 Hypertensive chronic kidney disease with stage 1 through stage 4 chronic kidney disease, or unspecified chronic kidney disease; E11.22 Type 2 diabetes mellitus with diabetic chronic kidney disease; N18.3 Chronic kidney disease, stage 3 (moderate); Z79.84 Long term (current) use of oral hypoglycemic drugs; E03.9 Hypothyroidism, unspecified; Z79.52 Long term (current) use of systemic steroids; Z85.038 Personal history of other malignant neoplasm of large intestine; Z92.21 Personal history of antineoplastic chemotherapy; Z92.3 Personal history of irradiation; M19.90 Unspecified osteoarthritis, unspecified site; H54.42 Blindness, left eye, normal vision right eye
CPT/HCPCS: 36415; 73060-26-RT; 73060-RT; 80048; 82550; 85025; 99285; A9270-GY